=== PATIENT | male | born 1970 | race Caucasian/White ===

== ENCOUNTER → 2019-05-11 | Outpatient (CLI) | payer BC, OTHER ==
[~2019-05-11] MED LIST: ALLO100T PO; ATEN50TA2 PO; LISI-542 PO; SIMV40TA2 PO
--- NOTE | 2019-05-17 10:00 | SLEEPCENT ---
DATE OF STUDY: 05/11/2019 ORDERED BY: Aiyana Finley NP Nocturnal polysomnography was performed for evaluation of sleep physiology in this patient with a history of snoring. 8 hours and 19 minutes of data were reviewed. There were 439 minutes of sleep identified. Sleep latency was prolonged 41 minutes. Rapid eye movement (REM) latency was prolonged at 109 minutes. Sleep architecture was good with 5 REM cycles. Overall sleep efficiency 89.4%. The electrocardiogram shows a sinus rhythm with an average heart rate of 75 beats per minute. Electroencephalogram (EEG) showed normal waveforms for awake and sleep. There were 364 respiratory events identified of 10 seconds in duration or greater for an apnea-hypopnea index of 49.7. The events were generally obstructive, however, 40 central and mixed apneas were seen. Arousals from respiratory events occurred 4.4 times per hour and oxygen desaturations were seen into the 80s. Remaining measures of sleep physiology were normal. IMPRESSION: Obstructive sleep apnea syndrome (G47.33). Apnea-hypopnea index 49.7. RECOMMENDATIONS: The patient should be encouraged to return to the sleep disorder center for pressure therapy. In the interim, alcohol and sedative avoidance should be practiced and caution exercised during the operation of motor vehicles.
== END ==
LOC: M SLEEP 19:34
PROVIDERS: ATTEND Nurse Practitioner Adult Health
DX: G47.33 Obstructive sleep apnea (adult) (pediatric) (principal)

== ENCOUNTER → 2019-06-16 | Outpatient (CLI) | payer BC, OTHER ==
--- NOTE | 2019-06-20 14:11 | SLEEPCENT ---
DATE OF STUDY: 06/16/2019 ORDERED BY: Aiyana Finley NP Nocturnal polysomnography was performed for the titration of pressure therapy in this patient with obstructive sleep apnea syndrome, apnea-hypopnea index 49.7. For testing, a ResMed AirFit F20 full face mask of large size was used, 4 cm of water pressure were applied to the circuit and the lights were extinguished. 7 hours and 36 minutes of data were reviewed. There were 420.5 minutes of sleep identified. Sleep latency was normal at 13.5 minutes. REM latency was normal at 85.5 minutes. Sleep architecture was good with four REM cycles. Overall sleep efficiency 94.3%. The patient's electrocardiogram showed a sinus rhythm with an average heart rate of 64 beats per minute. EEG showed normal waveforms for awake and sleep. Respiratory events were best palliated with CPAP at a pressure of +6 and remaining measures of sleep physiology were normal. IMPRESSION: Obstructive sleep apnea syndrome (G47.33). RECOMMENDATION: Nightly use of pressure therapy, 6 cm of water. cc: Yumiko Alford, ANP
== END ==
LOC: M SLEEP 20:00
PROVIDERS: ATTEND Nurse Practitioner Adult Health
DX: G47.33 Obstructive sleep apnea (adult) (pediatric) (principal)

== ENCOUNTER 2021-05-01 09:12 | Inpatient (IN) | payer BC, OTHER ==
[~2021-05-01] VITALS: Ht 182.9 cm; Wt 109.5 kg
[~2021-05-01 09:12] MED LIST changes: -LISI-542 PO; +LISI-898 PO; -SIMV40TA2 PO; +SIMV40TA20 PO
[2021-05-01] MEDS ORDERED: SIMV20TA22 PO (10:56)
[2021-05-01] MEDS ORDERED: LISI40TA4 PO (10:56)
[2021-05-01] MEDS ORDERED: CEFA500C2 PO (10:56)
[2021-05-01] MEDS ORDERED: HYDR-3490 PO (10:56)
[2021-05-01] MEDS ORDERED: ALLO300T2 PO (10:56)
[2021-05-01] MEDS ORDERED: METO1TAB7 PO (10:56)
[2021-05-01] MEDS ORDERED: NS 1,000 ML IV ONE ×2 (11:55→13:05)
[2021-05-01] MEDS ORDERED: PIPERACILLIN/TAZOBACTAM SOD 3.375 GM in D5W MINI-BAG PLUS 50 ML IV ONE (11:55)
[2021-05-01] MEDS ORDERED: VANCOMYCIN HCL 2,000 MG in D5W 500 ML IV ONE (11:55)
[2021-05-01] MEDS ORDERED: FISH1000 PO (12:19)
[2021-05-01] MEDS ORDERED: EQL50TAB2 PO (12:19)
[2021-05-01] MEDS ORDERED: HOME MED LIST COMPLETE! XX SCH (12:20)
[2021-05-01 12:32] LABS: BASO % 0.3 % (0.0-1.0); EOS % 0.2 % (0.0-3.0); HEMATOCRIT 43.4 % (42.0-52.0); HEMOGLOBIN 14.7 g/dl (13.5-17.5); LYMPH # 1.8 10^3/uL (1.5-5.0); LYMPH % 11.9 % (24.0-44.0); MEAN CORPUSCULAR HGB CONC 33.9 g/dl (32.0-36.5); MEAN CORPUSCULAR VOLUME 88.6 fl (80.0-96.0); MONO # 1.1 10^3/uL (0.0-0.8); MONO % 7.1 % (2.0-8.0); NEUTROPHILS # 12.1 10^3/uL (1.5-8.5); NEUTROPHILS % 79.5 % (36.0-66.0); PLATELET COUNT, AUTOMATED 178 10^3/uL (150-450); WHITE BLOOD COUNT 15.3 10^3/uL (4.0-10.0)
[2021-05-01] MEDS ORDERED: VANCOMYCIN HCL 1,000 MG, VIAL MATE ADAPTER 1 EACH in NS 250 ML IV ONE (13:00)
--- NOTE | 2021-05-01 13:03 | REP ---
INDICATION: infected dm foot r/o osteo COMPARISON: None. TECHNIQUE: Four views left foot. FINDINGS: There is no evidence of acute fracture, dislocation, or intrinsic bone disease.A large spur is noted of the inferior calcaneus, having a length of approximately 14 mm. A soft tissue ulcer is suspected adjacent to the 1st metatarsophalangeal joint, with associated soft tissue swelling. There is no compelling radiographic evidence of osteomyelitis. IMPRESSION: No compelling radiographic evidence of osteomyelitis. <Electronically signed by Kodak Dinh > 05/01/21 1300
[2021-05-01 13:16] LABS: ERYTHROCYTE SEDIMENTATION RATE 56 mm/hr (0-20)
[2021-05-01] MEDS: VANCOMYCIN HCL 1,000 MG, VIAL MATE ADAPTER 1 EACH in NS 250 ML IV ONE ×2 (13:35→14:46)
[2021-05-01 14:23] LABS: HEMOGLOBIN A1c 11.3 %
[2021-05-01] MEDS ORDERED: LEVEMIR (INSULIN DETEMIR) 1 UNITS/0.01ML SC ONE (14:40)
[2021-05-01] MEDS ORDERED: DEXTROSE 50% 50 ML SYRINGE IV PRN (14:45)
[2021-05-01] MEDS ORDERED: GLUCAGON INJ 1MG VIAL SC PRN (14:45)
[2021-05-01] MEDS ORDERED: ACETAMINOPHEN TAB 650MG DOSE (2X325MG) PO PRN (14:45)
[2021-05-01] MEDS ORDERED: PERCOCET 5MG/325MG TAB PO PRN (14:45)
[2021-05-01] MEDS ORDERED: GLUCOSE 4GM CHEW TABLET PO PRN (14:45)
[2021-05-01] MEDS ORDERED: ENOXAPARIN 40MG/0.4ML SYRINGE (J1650 PER 10MG) SC ONE (14:45)
[2021-05-01] MEDS ORDERED: CEFTAROLINE FOSAMIL 600 MG in D5W MINI-BAG PLUS 50 ML IV SCH (14:45)
[2021-05-01] MEDS ORDERED: ISOVUE-370 76% 100ML VIAL As Ordered ONE (15:00)
[2021-05-01] MEDS ORDERED: NS 1,000 ML IV SCH (15:00)
--- NOTE | 2021-05-01 15:57 | HPEPDOC ---
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 Bacon, noted a small red dot on the dorsal aspect of foot w bullae, worsening erythema, tenderness, and pain with fever 101-102 at home w serosanguineous drainage. Pt went to Urgent Care and was given cefadroxil 500 mg tid without improvement. In the ER, pt was found to be septic with wbc 15, 100.9 temp, lactic acidosis 2.8, and tachycardia hr 109bpm. Xray left foot: no osteomyelitis. crp 14. Hospitalist was asked to admit the patient for left foot diabetic foot infection w chronic plantar ulcer. sepsis left dorsal foot cellulitis with a soft tissue diabetic ulcer chronic 1st MTP plantar ulcer DM2, uncontrolled HTN, uncontrolled ANCA on cpap Dyslipidemia Obesity bmi 32.7 Fatty liver h/o GI bleed/perianal fistula s/p repair Plan: admit to medsurg as inpt for two midnights. cover for gram positive, gram neg and anaerobic bacteria. de-escalate abx once wound cxs are finalized. blood cx x 2sets. tight glycemic control. a1c 11.3. start levemir 10units sq bid. pain control bacid bowel regiment dvt prophylaxis. resume home cpap and bp meds. check lipid panel in am. check arterial dopplers to rule out peripheral vascular disease and need for revascularization. check ct left foot to rule out abscess. xr: no osteomyelitis. expected hospital stay 3-4 days pending clinical improvement. Vital Signs Vital Signs Date Time Temp Pulse Resp B/P (MAP) Pulse Ox O2 Delivery O2 Flow Rate FiO2 05/01/21 12:59 100.9 100 18 134/81 (98) 98 Room Air Laboratory Data Labs 24H Laboratory Tests 2 05/01/21 12:05: Immature Granulocyte % (Auto) 1.0, Neutrophils (%) (Auto) 79.5H, Lymphocytes (%) (Auto) 11.9L, Monocytes (%) (Auto) 7.1, Eosinophils (%) (Auto) 0.2, Basophils (%) (Auto) 0.3, Neutrophils # (Auto) 12.1H, Lymphocytes # (Auto) 1.8, Monocytes # (Auto) 1.1H, Eosinophils # (Auto) 0.0, Basophils # (Auto) 0.0, Nucleated Red Blood Cells % (auto) 0.0, Erythrocyte Sedimentation Rate 56H, Estimated Mean Plasma Glucose 278H, Hemoglobin A1c 11.3, Lactic Acid Level 2.8*H, C-Reactive Protein, Quantitative 14.80H, Coronavirus (COVID-19)(PCR) NEGATIVE 05/01/21 12:07: POC Glucose (Misc Panel) 360H, POC Sodium (Misc Panel) 137, POC Potassium (Misc Panel) 4.3, POC Chloride (Misc Panel) 96L, POC Total CO2 (Misc Panel) 27.0, POC Blood Urea Nitrogen (Misc Panel 14, POC Ionized Calcium (Misc Panel) 4.9, POC Creatinine (Misc Panel) 1.0, POC Hematocrit (Misc Panel) 44.0 CBC/BMP Laboratory Tests 05/01/21 12:05 Microbiology Microbiology 05/01/21 Blood Culture, Received Pending 05/01/21 Gram Stain - Final, Resulted 05/01/21 Wound Culture, Resulted Pending 05/01/21 Blood Culture, Received Pending Home Medications Scheduled Cefadroxil Monohydrate (Cefadroxil) 500 Mg Capsule, 500 MG PO TID STARTED 04/29/21 FOR 7 DAYS Hydrochlorothiazide (Hydrochlorothiazide) 25 Mg Tablet, 25 MG PO DAILY Lisinopril (Lisinopril) 40 Mg Tablet, 40 MG PO DAILY Metoprolol Succinate (Metoprolol Succinate) 50 Mg Tab.er.24h, 75 MG PO DAILY Whiteface-3 Fatty Acids/Fish Oil (Fish Oil 1,000 mg Capsule) 1 Each Capsule, 1,000 MG PO DAILY Simvastatin (Simvastatin) 20 Mg Tablet, 20 MG PO DAILY Vitamin B Complex (Vitamin B Complex) 1 Each Tablet, 1 TAB PO DAILY allopurinoL (allopurinoL) 300 Mg Tablet, 300 MG PO DAILY Allergies Coded Allergies: No Known Allergies (Verified , 8/15/07) A-FIB/CHADSVASC A-FIB History Current/History of A-Fib/PAF?: No Current PO Anticoag Therapy: No Age/Risk Factor Scoring CHADSVASC: CHADSVASC Response (Comments) Value Age Risk Factor Age < 65 years old 0 Gender Risk Factor Male 0 Hx of CHF No 0 Hx of HTN Yes 1 Hx of Stroke/TIA/or VTE No 0 Hx of Diabetes Yes 1 Hx of Vascular Disease No 0 Total 2 Treatment Treatment ordered: NONE VICKY IRENE MD May 01, 2021 15:57
[2021-05-01 17:12] VITALS: BP 155/95
--- NOTE | 2021-05-01 17:17 | REP ---
INDICATION: LEFT FOOT INFECTION R/O ABSCESS. COMPARISON: Plain film study performed earlier today. TECHNIQUE: CT of the left foot without IV contrast. FINDINGS: There is skin thickening medially adjacent to the great toe MTP articulation with edema in the underlying soft tissues. There is no focal fluid collection to suggest abscess. There are no lytic, blastic or destructive skeletal changes to suggest osteomyelitis in the great toe or elsewhere in the foot. There is a calcaneal plantar spur. Mineralization and joint spaces are otherwise unremarkable. IMPRESSION: No CT evidence of osteomyelitis, particularly at the base of the great toe. There is skin thickening medially adjacent to the great toe MTP P articulation with edema in the underlying soft tissue continue compatible with trauma, inflammation or infection in the soft tissues. <Electronically signed by Kodak Mari > 05/01/21 [id number]
[2021-05-01] MEDS: NS 1,000 ML IV SCH (17:20)
--- NOTE | 2021-05-01 17:20 | HPE ---
HISTORY AND PHYSICAL DATE OF ADMISSION: 05/01/2021 CHIEF COMPLAINT: Left foot redness, pain, and tenderness. HISTORY OF PRESENT ILLNESS: A 51-year-old male with a history of diabetes, obstructive sleep apnea, hypertension, gastrointestinal (GI) bleed, perianal fistula with repair, adenomatous rectosigmoid polyps, grade 3, hemorrhoids, cholecystectomy with chronic left plantar foot ulcer, managed by Dr. Bacon with every 2-week debridements, presents to the emergency room after failing outpatient treatment with cefadroxil for a left foot cellulitis. Patient said that last Tuesday he noted a small red dot on top of the left foot below the big toe, which then blistered and opened up on Tuesday. At that time, it was pea-sized, about 1 cm big, which increased to 2.5 cm and became bullous and opened with clear fluid. He was seen at the urgent care on Tuesday and had bene given cefadroxil. He had taken four pills of this for the past 2 days, and he has noted fever of 101 and 102 at home yesterday and the day before without improvement with antibiotics and taking Advil for pain. Patient is seen in the minor treatment in the emergency room and was found to have a 13 x 16 cm erythematous area with a 2.5 open blister on the bottom of the 1st big toe on the dorsal aspect without any crepitus or induration. The 1.5 cm 1st metatarsophalangeal (MTP) plantar ulcer had no drainage. Appeared clean without erythema. Workup included a complete blood count (CBC), which showed a white count of 15,000, lactic acid of 2.8, C-reactive protein of 14. Patient had a temperature of 100.9, pulse of 107-109. Hospitalist was called to admit the patient for left foot diabetic infection secondary to an open blister. Patient denies any trauma to this area, and he denies any manipulation of this area. He was given intravenous vancomycin and intravenous Zosyn. He otherwise denies any chills, any purulence. No other complaints. MEDICAL HISTORY: 1. Obstructive sleep apnea . 2. Obesity. 3. Hypertension. 4. GI bleed. 5. Perianal fistula with repair. 6. Type 2 diabetes. 7. Adenomatous rectosigmoid polyps. 8. Grade 3 hemorrhoids. 9. Fatty liver. 10. Obesity. 11. Hypercholesterolemia. PAST SURGICAL HISTORY: 1. Cholecystectomy in 2006. 2. Colonoscopy in 2016. 3. Rectofistula repair. 4. Debridement of the left foot by Dr. Bacon for a diabetic foot ulcer every 2 weeks. ALLERGIES: No known drug allergies. HOME MEDICATIONS: - cefadroxil 500 mg three times a day - hydrochlorothiazide 25 daily - lisinopril 40 mg daily - omega-3 fish oil 1 gram daily - vitamin B one tablet daily - allopurinol 300 daily - metoprolol 75 mg daily - simvastatin 20 mg daily SOCIAL HISTORY: Occasional wine during and . 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 Full code. Patient's is the healthcare proxy. Her name is Farhana Joyner, phone number . Denies recreational drug use. Nonsmoker. FAMILY HISTORY: Mother and father alive. Father with hypertension, age 76. Mother alive, age 73. Unknown medical problems. REVIEW OF SYSTEMS: Per history of present illness (HPI). A 12-point system otherwise negative. PHYSICAL EXAMINATION: VITAL SIGNS: Temperature 100.9, pulse 109, respiratory rate 18-19, blood pressure 170/90 to 134/81, 98%-95% on room air. GENERAL: Patient is awake, alert, oriented to person, place, and time, answering questions appropriately. No cyanosis, pallor, respiratory distress, or use of accessory muscles. Anicteric sclerae. HEENT: Pupils equally round and reactive to light and accommodation. Extraocular muscles are intact. Normocephalic, atraumatic. Dry mucous membranes. No cervical lymphadenopathy, thyromegaly, jugular venous distention, stridor, or carotid bruits. LUNGS: Clear to auscultation. Air entry is equal. Inspiratory/expiratory ratio of 1:2. No adventitious breath sounds. HEART: S1, S2, sinus tachycardia. No murmurs, rubs, or gallops. Nondisplaced point of maximal impulse. ABDOMEN: Obese, soft, nontender, nondistended. Positive bowel sounds times four quadrants. No rebound or guarding. Prior cholecystectomy scar is noted. EXTREMITIES: Patient has no cyanosis or clubbing. Trace edema bilaterally. On the plantar aspect of the left foot around the MTP joint, he has a 1.5 cm clean ulcer without erythema, induration, or discharge. On the dorsal aspect of the foot right below the 1st big toe he has an open blister, measuring 2.5 cm with significant serosanguineous drainage. Erythema is noted along the dorsal aspect of the foot, measuring 13 cm in length and 15 cm wide that is well demarcated. There is no crepitus. There is no induration. Slightly tender with some swelling. LABORATORY DATA: White count 15.3, hemoglobin 14, hematocrit 43.4, platelet count 178, 79% neutrophil shift. No bandemia. Sedimentation rate of 56. Metabolic panel: Sodium 137, potassium 4.3, chloride 96, bicarbonate 27, BUN 14, creatinine 1, ionized calcium 4.9, glucose 360. Lactic acid 2.8. Hemoglobin A1c of 11.3. C-reactive protein 14.8. Negative coronavirus. Two sets of blood cultures have been sent. Left foot wound cultures: No cells. No organisms seen. IMAGING STUDY: X-ray of the left foot: No osteomyelitis. There is no fracture, dislocation, or intrinsic bone disease. A large spur is noted on the inferior calcaneus with a length of 14 mm. Soft tissue ulcer adjacent to the first metatarsophalangeal joint with adjacent soft tissue swelling. No compelling evidence of osteomyelitis. ASSESSMENT AND PLAN: This is a 51-year-old male with diabetes, hypertension, obstructive sleep apnea, and obesity, metabolic syndrome, adenomatous rectosigmoid polyps with perianal fistula, which was repaired, presents with cellulitis of the left foot with a chronic venous plantar ulcer and a new open ruptured blister along the 1st metatarsophalangeal (MTP) joint on the left foot. Patient will be admitted as an inpatient for 2 midnights. 1. Left foot cellulitis left diabetic foot infection with an open blister in the setting of chronic plantar ulcer. Patient will be given gram-positive as well as gram-negative and anaerobic coverage due to history of type 2 diabetes. He has been given vancomycin and intravenous Zosyn. Wound cultures have been sent and will await and de-escalate antibiotics accordingly. Patient will be continued on ceftaroline and Flagyl for now. If no significant improvement, we can continue with vancomycin and Zosyn if needed. Pain control with Tylenol or Percocet every 4 hours as needed. Elevate the left lower extremity above three pillow at all times. Activity as tolerated. Patient will be evaluated for peripheral vascular disease with arterial Doppler. For better definition of the patient's soft tissue ulcer, a CT of the left foot with contrast will be obtained. If needed will consult vascular surgery for revascularization of significant peripheral vascular disease as noted. 2. Uncontrolled type 2 diabetes with no signs of acidosis. Patient will be started on Levemir insulin 10 units subcutaneous twice a day for better glycemic control. He will be placed on consistent-carbohydrate diet with fingersticks before every meal, at bedtime, and [facility]) protocol insulin coverage with Lispro insulin. A1c is 11.3. 3. Obesity. Check lipid panel. Control patient's type 2 diabetes with tighter glycemic control using Levemir insulin and sliding scale for now and adjust over the next 2-3 days. 4. Hypertension, uncontrolled, most likely secondary to pain and discomfort. Patient's metoprolol and lisinopril will be continued. Due to recent contrast study with a CT of the foot, patient will be given intravenous (IV) fluids, and we may need to hold the patient's lisinopril for 1 day to make sure he does not develop contrast nephropathy. 5. Obstructive sleep apnea. He may be resumed on his home CPAP settings. His can bring in his CPAP machine, or he can be placed on supplemental oxygen at nighttime. 6. History of a gastrointestinal (GI) bleed due to rectal fistula. Patient is currently stable with no new complaints. 7. History of grade 3 hemorrhoids. If needed, patient can be given a bowel regimen. 8. Deep venous thrombosis (DVT) prophylaxis with Lovenox subcutaneous. 9. Code status: Full code. 10. Diet will be consistent-carbohydrate diet. DISPOSITION: Patient will need at least 3 days of intravenous antibiotics and pending clinical improvement may need additional days or debridement. MTDD
[2021-05-01] MEDS: LACTOBACILLUS ACIDOPHILUS CAP (BACID) PO SCH (17:21)
--- NOTE | 2021-05-01 18:13 | REP ---
INDICATION: NONHEALING DIABETIC FOOT INFECTION R/O PAD. COMPARISON: None. TECHNIQUE: Doppler duplex ultrasound of the lower extremity arteries bilaterally. FINDINGS: Right lower extremity: Brachial peak systole: 140 mmHg Dorsalis pedis peak systole: 120 mmHg REPORT CHECKER peak systole: 120 mmHg MAIDA: 0.9 STILL PHOTOGRAPHER: 160 velocity, triphasic phasicity Profunda: Thick 95 velocity, triphasic phasicity SFA prox: 102 velocity, 2 triphasic phasicity SFA mid: 96 velocity, triphasic phasicity SFA dist: 79 velocity, triphasic phasicity Pop: 58 velocity, triphasic phasicity KHANG prox: 73 velocity, triphasic phasicity Tib/P tr: 41 velocity, triphasic phasicity REPORT CHECKER pr: 44 velocity, biphasic phasicity REPORT CHECKER dst: 67 velocity, biphasic phasicity KHANG dst: 29 velocity, biphasic phasicity Left lower extremity: Brachial peak systole: Non obtainable, IV site mmHg Dorsalis pedis peak systole: 120 mmHg REPORT CHECKER peak systole: 120 mmHg MAIDA: 0.9 STILL PHOTOGRAPHER: 127 velocity, triphasic phasicity Profunda: 118 velocity, monophasic phasicity SFA prox: 117 velocity, triphasic phasicity SFA mid: 121 velocity, triphasic phasicity SFA dist: 116 velocity, triphasic phasicity Pop: 130 velocity, triphasic phasicity KHANG prox: 133 velocity, monophasic phasicity Tib/P tr: 106 velocity, monophasic phasicity REPORT CHECKER pr: 111 velocity, monophasic phasicity REPORT CHECKER dst: 87 velocity, in monophasic phasicity KHANG dst: 128 velocity, monophasic phasicity IMPRESSION: Right lower extremity: There is mild atheromatous plaque. There is triphasic-biphasic phasicity throughout. No significant stenosis is identified. Left lower extremity: There is mild atheromatous plaque throughout. Slightly increased flow velocity is noted at the KHANG and there is increased end-diastolic flow at the ankle vessels. This is likely secondary to the left foot wounds. No stenosis is identified by ultrasound. <Electronically signed by Kodak Mari > 05/01/21 [id number]
[2021-05-01] MEDS: CEFTAROLINE FOSAMIL 600 MG in D5W MINI-BAG PLUS 50 ML IV SCH (18:20)
[2021-05-01] MEDS: HumaLOG INSULIN (NovoLOG) PER UNIT SC SCH ×2 (18:22→20:40)
[2021-05-01] MEDS: metroNIDAZOLE 500 MG in IV 1 EA IV SCH (20:39)
[2021-05-01] MEDS: SIMVASTATIN 20 MG TAB PO SCH (20:40)
[2021-05-01] MEDS ORDERED: LEVEMIR (INSULIN DETEMIR) 1 UNITS/0.01ML SC SCH (21:00)
[2021-05-01 22:00] VITALS: BP 123/90
[2021-05-02] MEDS: metroNIDAZOLE 500 MG in IV 1 EA IV SCH ×3 (03:17→20:26)
[2021-05-02] MEDS: NS 1,000 ML IV SCH (03:17)
[2021-05-02] MEDS: CEFTAROLINE FOSAMIL 600 MG in D5W MINI-BAG PLUS 50 ML IV SCH ×2 (05:18→18:02)
[2021-05-02 06:00] VITALS: BP 120/76
[2021-05-02 06:24] LABS: BASO % 0.4 % (0.0-1.0); EOS # 0.3 10^3/uL (0.0-0.5); EOS % 3.2 % (0.0-3.0); HEMATOCRIT 38.4 % (42.0-52.0); LYMPH # 1.6 10^3/uL (1.5-5.0); LYMPH % 20.7 % (24.0-44.0); MEAN CORPUSCULAR HEMOGLOBIN 29.9 pg (27.0-33.0); MEAN CORPUSCULAR HGB CONC 32.8 g/dl (32.0-36.5); MONO # 0.7 10^3/uL (0.0-0.8); MONO % 9.1 % (2.0-8.0); NEUTROPHILS # 5.2 10^3/uL (1.5-8.5); NEUTROPHILS % 66.1 % (36.0-66.0); PLATELET COUNT, AUTOMATED 140 10^3/uL (150-450); RED BLOOD COUNT 4.22 10^6/uL (4.30-6.10); WHITE BLOOD COUNT 7.8 10^3/uL (4.0-10.0)
[2021-05-02 06:26] LABS: HEMOGLOBIN 12.6 g/dl (13.5-17.5)
[2021-05-02 06:52] LABS: BLOOD UREA NITROGEN 12 MG/DL (7-18); CARBON DIOXIDE LEVEL 27 MEQ/L (21-32); CHLORIDE LEVEL 106 MEQ/L (98-107); CHOLESTEROL LEVEL 135 MG/DL (<200); CREATININE FOR GFR 0.93 MG/DL (0.70-1.30); GLOMERULAR FILTRATION RATE > 60.0 (>56); GLUCOSE, FASTING 268 MG/DL (70-100); HDL CHOLESTEROL 25 MG/DL (>40); LDL CHOLESTEROL 73 MG/DL (<100); NON-HDL-C 110 MG/DL; POTASSIUM SERUM 3.8 MEQ/L (3.5-5.1); SODIUM LEVEL 138 MEQ/L (136-145); TRIGLYCERIDES LEVEL 186 MG/DL (<150)
[2021-05-02 06:59] LABS: ERYTHROCYTE SEDIMENTATION RATE 63 mm/hr (0-20)
[2021-05-02] MEDS: allopurinoL 300 MG TAB PO SCH (08:47)
[2021-05-02] MEDS: HumaLOG INSULIN (NovoLOG) PER UNIT SC SCH ×4 (08:47→20:53)
[2021-05-02] MEDS: LACTOBACILLUS ACIDOPHILUS CAP (BACID) PO SCH ×3 (08:47→18:02)
[2021-05-02] MEDS: LEVEMIR (INSULIN DETEMIR) 1 UNITS/0.01ML SC SCH ×2 (08:47→20:26)
[2021-05-02] MEDS: METOPROLOL SUCC *XL* 25MG TAB (TopROL *XL*) PO SCH (08:51)
[2021-05-02] MEDS: ENOXAPARIN 40MG/0.4ML SYRINGE (J1650 PER 10MG) SC SCH (08:52)
--- NOTE | 2021-05-02 11:20 | IPNPDOC ---
Date Seen The patient was seen on 05/02/21. Progress Note SUBJECTIVE: He denies any pain of the foot. Afebrile since midnight. No chills Complains of discomfort when he ambulates and moves her foot With pain rising to 5-8 out of 10 on a pain scale OBJECTIVE: PHYSICAL EXAM: VITALS: See below GENERAL: Sitting at 35 degrees in bed in no distress patient is awake, alert, oriented to person, place, and time, answering questions appropriately. No cyanosis, pallor, respiratory distress, or use of accessory muscles. Anicteric sclerae. HEENT: No stridor. Pupils equally round and reactive to light and accommodation. Extraocular muscles are intact. Normocephalic, atraumatic. Moist mucous membranes. No cervical lymphadenopathy, thyromegaly, jugular venous distention, stridor, or carotid bruits. LUNGS: No kyphosis. No scoliosis. Clear to auscultation. Air entry is equal. Inspiratory/expiratory ratio of 1:2. No adventitious breath sounds. HEART: S1, S2, sinus. Regular rate rhythm. No murmurs, rubs, or gallops. Nondisplaced point of maximal impulse. No carotid bruits. No pitting edema. ABDOMEN: Obese, soft, nontender, nondistended. Positive bowel sounds times four quadrants. No rebound or guarding. No hepatosplenomegaly noted. EXTREMITIES: 1.5 cm clean Plantar ulcer without erythema, induration, or discharge At the base of the left first metatarsal joint.. Left foot below the 1st big toe an open blister, measuring 2.5 cm with serous drainage, decreased erythema is noted along the dorsum of the foot without induration or crepitus. LABORATORY DATA: See below IMAGING STUDY: X-ray of the left foot: No osteomyelitis. There is no fracture, dislocation, or intrinsic bone disease. A large spur is noted on the inferior calcaneus with a length of 14 mm. Soft tissue ulcer adjacent to the first metatarsophalangeal joint with adjacent soft tissue swelling. No compelling evidence of osteomyelitis. ASSESSMENT AND PLAN: This is a 51-year-old male with diabetes, hypertension, obstructive sleep apnea, and obesity, metabolic syndrome, adenomatous rectosigmoid polyps with perianal fistula, which was repaired, presents with cellulitis of the left foot with a chronic venous plantar ulcer and a new open ruptured blister along the 1st metatarsophalangeal (MTP) joint on the left foot. Patient will be admitted as an inpatient for 2 midnights. Left foot cellulitis left diabetic foot infection with an open blister and chronic plantar ulcer. -Status post Vanco Zosyn given in the ER -Day #2 of ceftaroline and Flagyl -As needed pain medications -Elevate on 3 pillows while supine -Activity as tolerated -Status post IV fluids -No significant stenosis on arterial Dopplers of bilateral lower extremities -CT left foot shows no abscess Uncontrolled type 2 diabetes -A1c of 11.3 -On Levemir insulin 11 units subcu every 12hrs -On consistent carbohydrate diet fingersticks QA [facility] insulin sliding scale coverage -Not started on Metformin due to recent contrast study of the foot yesterday with increased risk of nephrotoxicity if concurrently given Obesity. -Complicating care Hypertension, improved -Resumed home meds Obstructive sleep apnea. - home CPAP settings. History of a gastrointestinal (GI) bleed due to rectal fistula. History of grade 3 hemorrhoids Deep venous thrombosis (DVT) prophylaxis with Lovenox subcutaneous. Code status: Full code. Diet consistent-carbohydrate diet. Disposition 2-3 more days of IV antibiotics possible discharge on Tuesday depending on whether patient requires surgical debridement VS, I&O, 24H, Andrez Vital Signs/I&O Vital Signs Date Time Temp Pulse Resp B/P (MAP) Pulse Ox O2 Delivery O2 Flow Rate FiO2 05/02/21 08:51 82 121/78 05/02/21 06:00 97.9 19 97 Room Air I&O- Last 24 Hours up to 6 AM 05/02/21 06:00 Intake Total 3160 ml Output Total 0 ml Balance 3160 ml Laboratory Data 24H LABS Laboratory Tests 2 05/01/21 12:05: Immature Granulocyte % (Auto) 1.0, Neutrophils (%) (Auto) 79.5H, Lymphocytes (%) (Auto) 11.9L, Monocytes (%) (Auto) 7.1, Eosinophils (%) (Auto) 0.2, Basophils (%) (Auto) 0.3, Neutrophils # (Auto) 12.1H, Lymphocytes # (Auto) 1.8, Monocytes # (Auto) 1.1H, Eosinophils # (Auto) 0.0, Basophils # (Auto) 0.0, Nucleated Red Blood Cells % (auto) 0.0, Erythrocyte Sedimentation Rate 56H, Estimated Mean Plasma Glucose 278H, Hemoglobin A1c 11.3, Lactic Acid Level 2.8*H, C-Reactive Pr otein, Quantitative 14.80H, Coronavirus (COVID-19)(PCR) NEGATIVE 05/01/21 12:07: POC Glucose (Misc Panel) 360H, POC Sodium (Misc Panel) 137, POC Potassium (Misc Panel) 4.3, POC Chloride (Misc Panel) 96L, POC Total CO2 (Misc Panel) 27.0, POC Blood Urea Nitrogen (Misc Panel 14, POC Ionized Calcium (Misc Panel) 4.9, POC Creatinine (Misc Panel) 1.0, POC Hematocrit (Misc Panel) 44.0 05/01/21 16:42: Lactic Acid Followup at 4 Hours 1.5 05/01/21 17:01: Bedside Glucose (Misc Panel) 237H 05/01/21 20:33: Bedside Glucose (Misc Panel) 297H 05/02/21 05:25: Methicillin-Resist S.aureus DNA PCR NOT DETECTED 05/02/21 05:44: Immature Granulocyte % (Auto) 0.5, Neutrophils (%) (Auto) 66.1H, Lymphocytes (%) (Auto) 20.7L, Monocytes (%) (Auto) 9.1H, Eosinophils (%) (Auto) 3.2H, Basophils (%) (Auto) 0.4, Neutrophils # (Auto) 5.2, Lymphocytes # (Auto) 1.6, Monocytes # (Auto) 0.7, Eosinophils # (Auto) 0.3, Basophils # (Auto) 0.0, Nucleated Red Blood Cells % (auto) 0.0, Erythrocyte Sedimentation Rate 63H, Anion Gap 5L, Glomerular Filtration Rate > 60.0, Calcium Level 8.0L, C-Reactive Protein, Qu antitative 11.50H, Triglycerides Level 186H, Total Cholesterol 135, LDL Cholesterol 73, Non-HDL Cholesterol (LDL + VLDL) 110, Total HDL Cholesterol 25L, Cholesterol/HDL Ratio 5.400H, Thyroid Stimulating Hormone (TSH) 1.080 CBC/BMP Laboratory Tests 05/01/21 12:05 05/02/21 05:44 Microbiology Microbiology 05/01/21 Blood Culture, Received Pending 05/01/21 Gram Stain - Final, Resulted 05/01/21 Wound Culture, Resulted Pending 05/01/21 Blood Culture, Received Pending VICKY IRENE MD May 02, 2021 11:14
[2021-05-02 14:00] VITALS: BP 135/79
[2021-05-02] MEDS: SIMVASTATIN 20 MG TAB PO SCH (20:26)
[2021-05-02 22:00] VITALS: BP 124/74
[2021-05-03] MEDS: metroNIDAZOLE 500 MG in IV 1 EA IV SCH ×3 (03:56→20:19)
[2021-05-03] MEDS: CEFTAROLINE FOSAMIL 600 MG in D5W MINI-BAG PLUS 50 ML IV SCH ×2 (05:26→17:36)
[2021-05-03 06:00] VITALS: BP 141/79
[2021-05-03 06:16] LABS: BASO # 0.1 10^3/uL (0.0-0.2); BASO % 0.8 % (0.0-1.0); EOS # 0.3 10^3/uL (0.0-0.5); EOS % 4.5 % (0.0-3.0); HEMATOCRIT 37.7 % (42.0-52.0); HEMOGLOBIN 12.4 g/dl (13.5-17.5); LYMPH # 1.6 10^3/uL (1.5-5.0); LYMPH % 24.5 % (24.0-44.0); MEAN CORPUSCULAR HGB CONC 32.9 g/dl (32.0-36.5); MEAN CORPUSCULAR VOLUME 91.1 fl (80.0-96.0); MONO # 0.6 10^3/uL (0.0-0.8); MONO % 9.2 % (2.0-8.0); NEUTROPHILS # 3.9 10^3/uL (1.5-8.5); NEUTROPHILS % 60.2 % (36.0-66.0); PLATELET COUNT, AUTOMATED 156 10^3/uL (150-450); RED BLOOD COUNT 4.14 10^6/uL (4.30-6.10); WHITE BLOOD COUNT 6.4 10^3/uL (4.0-10.0)
[2021-05-03 06:28] LABS: BLOOD UREA NITROGEN 13 MG/DL (7-18); CALCIUM LEVEL 7.8 MG/DL (8.5-10.1); CARBON DIOXIDE LEVEL 27 MEQ/L (21-32); CHLORIDE LEVEL 112 MEQ/L (98-107); CREATININE FOR GFR 0.93 MG/DL (0.70-1.30); GLOMERULAR FILTRATION RATE > 60.0 (>56); GLUCOSE, FASTING 213 MG/DL (70-100); SODIUM LEVEL 143 MEQ/L (136-145)
[2021-05-03] MEDS: LEVEMIR (INSULIN DETEMIR) 1 UNITS/0.01ML SC SCH ×2 (08:11→20:20)
[2021-05-03] MEDS: HumaLOG INSULIN (NovoLOG) PER UNIT SC SCH ×4 (08:11→21:00)
[2021-05-03] MEDS: allopurinoL 300 MG TAB PO SCH (08:12)
[2021-05-03] MEDS: METOPROLOL SUCC *XL* 25MG TAB (TopROL *XL*) PO SCH (08:12)
[2021-05-03] MEDS: metFORMIN (GLUCOPHAGE) 1000 MG TABLET PO SCH ×2 (08:12→17:36)
[2021-05-03] MEDS: LACTOBACILLUS ACIDOPHILUS CAP (BACID) PO SCH ×3 (08:12→17:36)
[2021-05-03] MEDS: ENOXAPARIN 40MG/0.4ML SYRINGE (J1650 PER 10MG) SC SCH (08:12)
--- NOTE | 2021-05-03 11:13 | IPNPDOC ---
Date Seen The patient was seen on 05/03/21. Progress Note SUBJECTIVE: Patient has no fever chills nausea vomiting abdominal pain diarrhea erythema and tenderness of the left foot are both improving on IV antibiotics Patient denies any worsening discharge from the dorsum of the left foot below the first MTP joint. He denies any throbbing pain this morning says that the discomfort is 1 out of 10 on a pain scale. Glucose levels are improved on Levemir insulin. OBJECTIVE: PHYSICAL EXAM: VITALS: See below GENERAL: Lying in bed asleep but easily arousable answers questions appropriately without respiratory distress HEENT: Moist mucous membranes no JVD or thyromegaly LUNGS: Air entry is equal clear to auscultation no adventitious breath sounds HEART: S1, S2, sinus. Regular rate rhythm. ABDOMEN: Obese, soft, nontender, nondistended. Positive bowel sounds times four quadrants. No rebound or guarding. EXTREMITIES: 1.5 cm clean Plantar ulcer without erythema, induration, or discharge At the base of the left first metatarsal joint.. Left foot below the 1st big toe an open blister, measuring 2.5 cm without purulent drainage decreasing erythema of the dorsum of the foot. LABORATORY DATA: See below IMAGING STUDY: X-ray of the left foot: No osteomyelitis. There is no fracture, dislocation, or intrinsic bone disease. A large spur is noted on the inferior calcaneus with a length of 14 mm. Soft tissue ulcer adjacent to the first metatarsophalangeal joint with adjacent soft tissue swelling. No compelling evidence of osteomyelitis. ASSESSMENT AND PLAN: This is a 51-year-old male with diabetes, hypertension, obstructive sleep apnea, and obesity, metabolic syndrome, adenomatous rectosigmoid polyps with perianal fistula, which was repaired, presents with cellulitis of the left foot with a chronic venous plantar ulcer and a new open ruptured blister along the 1st metatarsophalangeal (MTP) joint on the left foot. Patient will be admitted as an inpatient for 2 midnights. Left foot cellulitis left diabetic foot infection with an open blister and chronic plantar ulcer. Uncontrolled type 2 diabetes Obesity. Hypertension Obstructive sleep apnea. History of a gastrointestinal (GI) bleed due to rectal fistula. History of grade 3 hemorrhoids Deep venous thrombosis (DVT) prophylaxis with Lovenox subcutaneous. PLAN: Patient is clinically improving on IV antibiotics he did receive Vanco Zosyn from the emergency room He is currently on ceftaroline and Flagyl Patient failed on outpatient antibiotics Telemedicine with Dr. Bo for wound care Dr. Bacon director of research and development is on vacation this entire week and will not be availab le for debridement We will consult general surgery for debridement of the left foot Arterial Dopplers did not show any significant peripheral arterial disease CT of the foot did not show any abscess formation the requires emergency incision and drainage X-ray of the foot did not show any osteomyelitis Patient has been started on Levemir insulin and sliding scale which the patient does not want to keep as outpatient Will start on Metformin 1 g twice daily and titrate Levemir insulin down if glucose is better controlled. Code status: Full code. Diet consistent-carbohydrate diet. Disposition : Await wound care evaluation by Dr. Bo for dressing changes. General surgical consult for debridement of the left dorsal diabetic ulcer. 1- 2 more days of hospital stay . VS, I&O, 24H, Fishbone Vital Signs/I&O Vital Signs Date Time Temp Pulse Resp B/P (MAP) Pulse Ox O2 Delivery O2 Flow Rate FiO2 05/03/21 08:12 71 141/88 05/03/21 06:00 98.6 16 99 NIPPV (BIPAP/CPAP) I&O- Last 24 Hours up to 6 AM 05/03/21 06:00 Intake Total 1600 ml Output Total 0 ml Balance 1600 ml Laboratory Data 24H LABS Laboratory Tests 2 05/02/21 11:35: Bedside Glucose (Misc Panel) 264H 05/02/21 16:59: Bedside Glucose (Misc Panel) 239H 05/02/21 20:08: Bedside Glucose (Misc Panel) 250H 05/03/21 05:43: Immature Granulocyte % (Auto) 0.8, Neutrophils (%) (Auto) 60.2, Lymphocytes (%) (Auto) 24.5, Monocytes (%) (Auto) 9.2H, Eosinophils (%) (Auto) 4.5H, Basophils (%) (Auto) 0.8, Neutrophils # (Auto) 3.9, Lymphocytes # (Auto) 1.6, Monocytes # (Auto) 0.6, Eosinophils # (Auto) 0.3, Basophils # (Auto) 0.1, Nucleated Red Blood Cells % (auto) 0.0, Anion Gap 4L, Glomerular Filtration Rate > 60.0, Manuelito cium Level 7.8L CBC/BMP Laboratory Tests 05/03/21 05:43 Microbiology Microbiology 05/01/21 Blood Culture - Preliminary, Resulted No growth after 24 hours . All specim... 05/01/21 Gram Stain - Final, Complete 05/01/21 Wound Culture - Final, Complete 05/01/21 Blood Culture - Preliminary, Resulted No growth after 24 hours . All specim... VICKY IRENE MD May 03, 2021 11:13
[2021-05-03 14:00] VITALS: BP 132/82
[2021-05-03] MEDS: SIMVASTATIN 20 MG TAB PO SCH (20:19)
[2021-05-03 22:00] VITALS: BP 129/66
[2021-05-04] MEDS: metroNIDAZOLE 500 MG in IV 1 EA IV SCH ×3 (04:07→20:39)
[2021-05-04] MEDS: CEFTAROLINE FOSAMIL 600 MG in D5W MINI-BAG PLUS 50 ML IV SCH ×2 (05:10→17:10)
[2021-05-04 05:59] LABS: BASO % 0.7 % (0.0-1.0); EOS # 0.3 10^3/uL (0.0-0.5); EOS % 4.6 % (0.0-3.0); HEMATOCRIT 38.8 % (42.0-52.0); HEMOGLOBIN 12.8 g/dl (13.5-17.5); LYMPH # 1.7 10^3/uL (1.5-5.0); LYMPH % 28.5 % (24.0-44.0); MEAN CORPUSCULAR HEMOGLOBIN 29.8 pg (27.0-33.0); MEAN CORPUSCULAR VOLUME 90.2 fl (80.0-96.0); MONO # 0.5 10^3/uL (0.0-0.8); MONO % 7.7 % (2.0-8.0); NEUTROPHILS # 3.5 10^3/uL (1.5-8.5); NEUTROPHILS % 57.7 % (36.0-66.0); PLATELET COUNT, AUTOMATED 169 10^3/uL (150-450); WHITE BLOOD COUNT 6.1 10^3/uL (4.0-10.0)
[2021-05-04 06:00] VITALS: BP 116/68
[2021-05-04 06:26] LABS: BLOOD UREA NITROGEN 12 MG/DL (7-18); CALCIUM LEVEL 7.9 MG/DL (8.5-10.1); CARBON DIOXIDE LEVEL 26 MEQ/L (21-32); CHLORIDE LEVEL 112 MEQ/L (98-107); CREATININE FOR GFR 0.98 MG/DL (0.70-1.30); GLOMERULAR FILTRATION RATE > 60.0 (>56); GLUCOSE, FASTING 130 MG/DL (70-100); POTASSIUM SERUM 3.4 MEQ/L (3.5-5.1); SODIUM LEVEL 141 MEQ/L (136-145)
[2021-05-04] MEDS ORDERED: POTASSIUM CHLORIDE 10 MEQ SR TABLET PO ONE (07:15)
[2021-05-04] MEDS: LACTOBACILLUS ACIDOPHILUS CAP (BACID) PO SCH ×3 (08:06→17:11)
[2021-05-04] MEDS: metFORMIN (GLUCOPHAGE) 1000 MG TABLET PO SCH ×2 (08:06→17:11)
[2021-05-04] MEDS: ENOXAPARIN 40MG/0.4ML SYRINGE (J1650 PER 10MG) SC SCH (08:06)
[2021-05-04] MEDS: allopurinoL 300 MG TAB PO SCH (08:06)
[2021-05-04] MEDS: METOPROLOL SUCC *XL* 25MG TAB (TopROL *XL*) PO SCH (08:07)
[2021-05-04] MEDS: HumaLOG INSULIN (NovoLOG) PER UNIT SC SCH ×4 (08:08→20:39)
[2021-05-04] MEDS: LEVEMIR (INSULIN DETEMIR) 1 UNITS/0.01ML SC SCH (08:09)
[2021-05-04 09:12] LABS: C REACTIVE PROTEIN QUANTITATIV 4.29 MG/DL (0.00-0.30)
[2021-05-04 09:18] LABS: ERYTHROCYTE SEDIMENTATION RATE 52 mm/hr (0-20)
[2021-05-04 14:00] VITALS: BP 101/66
--- NOTE | 2021-05-04 15:35 | IPNPDOC ---
Date Seen The patient was seen on 05/04/21. Progress Note SUBJECTIVE: Patient remains afebrile without any chills he does not complain of pain on the left lower extremity Patient continues to have some purulent drainage at the ulcer site OBJECTIVE: PHYSICAL EXAM: VITALS: See below GENERAL: Lying in bed asleep but easily arousable answers questions appropriately without respiratory distress HEENT: Moist mucous membranes no JVD or thyromegaly LUNGS: Air entry is equal clear to auscultation no adventitious breath sounds HEART: S1, S2, sinus. Regular rate rhythm. ABDOMEN: Obese, soft, nontender, nondistended. Positive bowel sounds times four quadrants. No rebound or guarding. EXTREMITIES: 1.5 cm clean Plantar ulcer without erythema, induration, or discharge At the base of the left first metatarsal joint.. Left dorsal foot below the 1st big toe: 2.5 cm open ulcer with thick yellow purulent discharge decreasing erythema of the dorsum of the foot. No induration or crepitus LABORATORY DATA: See below IMAGING STUDY: X-ray of the left foot: No osteomyelitis. There is no fracture, dislocation, or intrinsic bone disease. A large spur is noted on the inferior calcaneus with a length of 14 mm. Soft tissue ulcer adjacent to the first metatarsophalangeal joint with adjacent soft tissue swelling. No compelling evidence of osteomyelitis. ASSESSMENT AND PLAN: This is a 51-year-old male with diabetes, hypertension, obstructive sleep apnea, and obesity, metabolic syndrome, adenomatous rectosigmoid polyps with perianal fistula, which was repaired, presents with cellulitis of the left foot with a chronic venous plantar ulcer and a new open ruptured blister along the 1st metatarsophalangeal (MTP) joint on the left foot. Patient will be admitted as an inpatient for 2 midnights. Left foot cellulitis -Status post 1 dose of IV vancomycin and IV Zosyn from the emergency room on admission -Currently on IV ceftaroline and Flagyl -decreasing erythema -improved white count to normal after 24 hours of hospital admission -To complete a 7-day course of antibiotics which can be transitioned to oral medications left diabetic dorsal foot infection with an open 2.5 cm ulcer -General surgeon Dr. 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 Bacon is on vacation for 2 weeks and currently unavailable to do debridement -Telemedicine with Dr. Bo for dressing changes chronic plantar ulcer. -X-ray shows no osteomyelitis -Clean, dry -Continue daily dressing changes Uncontrolled type 2 diabetes -Started on Levemir insulin for better glycemic control -On Metformin 1 g twice daily Obesity. -Complicating care Hypertension -Controlled Obstructive sleep apnea. -On CPAP nightly -Compliant History of a gastrointestinal (GI) bleed due to rectal fistula. -No acute complaints History of grade 3 hemorrhoids -Chronic Deep venous thrombosis (DVT) prophylaxis with Lovenox subcutaneous. Code status: Full code. Diet consistent-carbohydrate diet. VS, I&O, 24H, Fishbone Vital Signs/I&O Vital Signs Date Time Temp Pulse Resp B/P (MAP) Pulse Ox O2 Delivery O2 Flow Rate FiO2 05/04/21 14:00 98.5 56 16 101/66 (78) 98 05/04/21 06:00 Room Air I&O- Last 24 Hours up to 6 AM 05/04/21 06:00 Intake Total 1790 ml Output Total 0 ml Balance 1790 ml Laboratory Data 24H LABS Laboratory Tests 2 05/03/21 17:02: Bedside Glucose (Misc Panel) 118H 05/03/21 20:12: Bedside Glucose (Misc Panel) 136H 05/04/21 05:38: Immature Granulocyte % (Auto) 0.8, Neutrophils (%) (Auto) 57.7, Lymphocytes (%) (Auto) 28.5, Monocytes (%) (Auto) 7.7, Eosinophils (%) (Auto) 4.6H, Basophils (%) (Auto) 0.7, Neutrophils # (Auto) 3.5, Lymphocytes # (Auto) 1.7, Monocytes # (Auto) 0.5, Eosinophils # (Auto) 0.3, Basophils # (Auto) 0.0, Nucleated Red Blood Cells % (auto) 0.0, Erythrocyte Sedimentation Rate 52H, Anion Gap 3L, Terrie merular Filtration Rate > 60.0, Calcium Level 7.9L, C-Reactive Protein, Quantitative 4.29H 05/04/21 11:40: Bedside Glucose (Misc Panel) 206H CBC/BMP Laboratory Tests 05/04/21 05:38 Microbiology Microbiology 05/01/21 Blood Culture - Preliminary, Resulted No Growth after 72 hours. All specime... 05/01/21 Gram Stain - Final, Complete 05/01/21 Wound Culture - Final, Complete 05/01/21 Blood Culture - Preliminary, Resulted No Growth after 72 hours. All specime... VICKY IRENE MD May 04, 2021 15:34
[2021-05-04] MEDS: SIMVASTATIN 20 MG TAB PO SCH (20:38)
--- NOTE | 2021-05-04 21:52 | CR ---
CONSULTATION DATE: 05/04/2021 REASON FOR CONSULTATION: Left foot abscess/infection. BRIEF HISTORY OF PRESENT ILLNESS: The patient is a 51-year-old male who has been followed for a long time with Dr. Bacon, who is out of the country at this time and plans were to consult him this Tuesday, however he is actually still out of the country for this week or a second option to contact [facility] and I am not sure if they were contacted or not, but I was asked to see the patient concerning a left foot ulcer with a new onset of infected left forefoot. Fortunately he states that things have been getting better over the weekend. His white count has normalized. He has been afebrile. His sugars have been getting more under control and he states the redness has been getting better. He has noticed some increased drainage from the top of his foot, however and he had some significant blistering in that area. PAST MEDICAL HISTORY: The patient's past medical history is significant for: 1. Uncontrolled diabetes mellitus. 2. History of hypertension. 3. Obstructive sleep apnea on CPAP. 4. History of chronic plantar ulcer. 5. History of dyslipidemia. 6. Obesity. 7. Fatty liver. 8. History of GI bleed. 9. Perianal fistula - status post repair. 10. History of hypercholesterolemia. 11. Gout. MEDICATIONS: 1. Cefadroxil. 2. Hydrochlorothiazide. 3. Lisinopril. 4. Metoprolol. 5. [place] 3. 6. Simvastatin. 7. Vitamin B. 8. Allopurinol. PHYSICAL EXAMINATION: GENERAL APPEARANCE: A 51-year-old male who looks stated age. HEENT: Unremarkable. LUNGS: Clear anteriorly. HEART: Regular. ABDOMEN: Soft. EXTREMITIES: Extremity on the left reveals some edema that is about 2+ with a line showing where the erythema has been. It has regressed substantially towards the foot itself. There is some purulent drainage from the small hole on the top of his web space between the first and second digits. He has an ulcer on the bottom of his foot, although I cannot appreciate a connection bottom and the top while probing this. I am able to probe the open wound on the top of his foot and I removed some of the blister that was covering this. This wiped away easily. There was some fibrinous exudate at this opening as well that I was able to move out of the way and this helped it drain substantially. He has some undermining of the skin that is about an inch across, although once again, I am not feeling any tracking into the deep space at this time. He is able to move all of his toes without pain or discomfort. IMPRESSION AND PLAN: The patient has a foot infection. Most likely this was secondary to his plantar ulcer and at this point we have had a long discussion concerning amputations, dbridements, and most importantly, he has had significant improvement clinically as well as from his own tenderness, discomfort and swelling in this area, and thus given that this seems to be draining more today and has a better egress of fluid, I feel two things should be done: 1. Re-culture this. 2. Be a little more aggressive with the dressing changes, and we will see how he does. He might need of a debridement in opening up this area with further dressing changes, but at this point, given his improvement, it is not unreasonable to see how he does over the ensuing 12 hours.
[2021-05-04 22:00] VITALS: BP 117/59
[2021-05-05] MEDS: metroNIDAZOLE 500 MG in IV 1 EA IV SCH ×2 (04:29→13:11)
[2021-05-05 06:00] VITALS: BP 134/83
[2021-05-05 06:00] LABS: BASO % 0.6 % (0.0-1.0); EOS # 0.2 10^3/uL (0.0-0.5); EOS % 3.1 % (0.0-3.0); HEMATOCRIT 39.2 % (42.0-52.0); HEMOGLOBIN 12.8 g/dl (13.5-17.5); LYMPH # 1.6 10^3/uL (1.5-5.0); LYMPH % 22.4 % (24.0-44.0); MEAN CORPUSCULAR HEMOGLOBIN 29.5 pg (27.0-33.0); MEAN CORPUSCULAR HGB CONC 32.7 g/dl (32.0-36.5); MEAN CORPUSCULAR VOLUME 90.3 fl (80.0-96.0); MONO # 0.4 10^3/uL (0.0-0.8); NEUTROPHILS # 4.8 10^3/uL (1.5-8.5); NEUTROPHILS % 67.1 % (36.0-66.0); PLATELET COUNT, AUTOMATED 165 10^3/uL (150-450); RED BLOOD COUNT 4.34 10^6/uL (4.30-6.10); WHITE BLOOD COUNT 7.2 10^3/uL (4.0-10.0)
[2021-05-05] MEDS: CEFTAROLINE FOSAMIL 600 MG in D5W MINI-BAG PLUS 50 ML IV SCH (06:06)
[2021-05-05 06:17] LABS: BLOOD UREA NITROGEN 11 MG/DL (7-18); CALCIUM LEVEL 7.9 MG/DL (8.5-10.1); CARBON DIOXIDE LEVEL 26 MEQ/L (21-32); CHLORIDE LEVEL 112 MEQ/L (98-107); CREATININE FOR GFR 0.99 MG/DL (0.70-1.30); GLOMERULAR FILTRATION RATE > 60.0 (>56); GLUCOSE, FASTING 151 MG/DL (70-100); POTASSIUM SERUM 4.1 MEQ/L (3.5-5.1); SODIUM LEVEL 144 MEQ/L (136-145)
[2021-05-05] MEDS: metFORMIN (GLUCOPHAGE) 1000 MG TABLET PO SCH ×2 (08:40→17:37)
[2021-05-05] MEDS: allopurinoL 300 MG TAB PO SCH (08:40)
[2021-05-05] MEDS: ENOXAPARIN 40MG/0.4ML SYRINGE (J1650 PER 10MG) SC SCH (08:40)
[2021-05-05] MEDS: LACTOBACILLUS ACIDOPHILUS CAP (BACID) PO SCH ×3 (08:40→17:37)
[2021-05-05] MEDS: METOPROLOL SUCC *XL* 25MG TAB (TopROL *XL*) PO SCH (08:41)
[2021-05-05] MEDS: HumaLOG INSULIN (NovoLOG) PER UNIT SC SCH ×2 (08:41→13:11)
[2021-05-05] MEDS ORDERED: LEVEMIR (INSULIN DETEMIR) 1 UNITS/0.01ML SC SCH (09:00)
--- NOTE | 2021-05-05 13:21 | IPNPDOC ---
Subjective Date Seen The patient was seen on 05/05/21. Subjective Chief Complaint/HPI Feeling much better today foot pain is controlled, redness is mostly gone, no fever or chills. Objective Physical Examination General Exam: Positive: Alert, Cooperative, No Acute Distress Eye Exam: Positive: PERRLA, Conjunctiva & lids normal, EOMI; Negative: Sclera icteric ENT Exam: Positive: Atraumatic, Mucous membr. moist/pink, Pharynx Normal Neck Exam: Positive: Supple; Negative: JVD, thyromegaly Chest Exam: Positive: Clear to auscultation, Normal air movement Heart Exam: Positive: Rate Normal, Regular Rhythm, Normal S1, Normal S2; Negative: Murmurs, Rubs Abdomen Exam: Positive: Normal bowel sounds, Soft; Negative: Tenderness Extremity Exam: Negative: Clubbing, Cyanosis, Edema Skin Exam: Positive: Other skin issue (Left foot plantar ulcer at the base of the first toe, left foot ulcer on the dorsum in between the first and the second toe) Neuro Exam: Positive: Normal Speech, Strength at 5/5 X4 ext, Normal Tone Psych Exam: Positive: Memory Intact, Oriented x 3 Assessment /Plan Assessment This is a 51-year-old male with diabetes, hypertension, obstructive sleep apnea, and obesity, metabolic syndrome, adenomatous rectosigmoid polyps with perianal fistula, which was repaired, presents with cellulitis of the left foot with a chronic venous plantar ulcer and a new open ruptured blister along the 1st metatarsophalangeal (MTP) joint on the left foot. 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 Bo for dressing changes Blister on the dorsum of the foot was deroofed by Dr. Bailey percent for culture Wound culture pending Blood cultures negative till date Chronic plantar ulcer. X-ray shows no osteomyelitis Clean, with some fresh bleeding Continue daily dressing changes Uncontrolled type 2 diabetes Started on Levemir insulin for better glycemic control On Metformin 1 g twice daily at home Obesity. Complicating care Hypertension Controlled Obstructive sleep apnea. On CPAP nightly Compliant History of a gastrointestinal (GI) bleed due to rectal fistula. No acute complaints History of grade 3 hemorrhoids Chronic Plan/VTE VTE Prophylaxis Ordered?: Yes VS, I&O, 24H, Fishbone Vital Signs/I&O Vital Signs Date Time Temp Pulse Resp B/P (MAP) Pulse Ox O2 Delivery O2 Flow Rate FiO2 05/05/21 08:41 62 134/83 05/05/21 06:00 97.3 17 98 Room Air I&O- Last 24 Hours up to 6 AM 05/05/21 06:00 Intake Total 850 ml Balance 850 ml Laboratory Data 24H LABS Laboratory Tests 2 05/04/21 16:15: Bedside Glucose (Misc Panel) 149H 05/04/21 19:59: Bedside Glucose (Misc Panel) 167H 05/05/21 05:28: Immature Granulocyte % (Auto) 0.8, Neutrophils (%) (Auto) 67.1H, Lymphocytes (%) (Auto) 22.4L, Monocytes (%) (Auto) 6.0, Eosinophils (%) (Auto) 3.1H, Basophils (%) (Auto) 0.6, Neutrophils # (Auto) 4.8, Lymphocytes # (Auto) 1.6, Monocytes # (Auto) 0.4, Eosinophils # (Auto) 0.2, Basophils # (Auto) 0.0, Nucleated Red Blood Cells % (auto) 0.0, Anion Gap 6L, Glomerular Filtration Rate > 60.0, Calcium Level 7.9L 05/05/21 11:29: Bedside Glucose (Misc Panel) 180H CBC/BMP Laboratory Tests 05/05/21 05:28 Microbiology Microbiology 05/05/21 Gram Stain, Received Pending 05/05/21 Abscess Culture, Received Pending 05/01/21 Blood Culture - Preliminary, Resulted No Growth after 72 hours. All specime... 05/01/21 Gram Stain - Final, Resulted 05/01/21 Wound Culture - Preliminary, Resulted 05/01/21 Blood Culture - Preliminary, Resulted No Growth after 72 hours. All specime... NAYELY CATALAN MD May 05, 2021 13:21
[2021-05-05 14:00] VITALS: BP 130/90
[2021-05-05] MEDS: PIPERACILLIN/TAZOBACTAM SOD 3.375 GM in D5W MINI-BAG PLUS 50 ML IV SCH ×2 (15:27→20:35)
[2021-05-05] MEDS: glipiZIDE (GLUCOTROL) 5 MG TAB PO SCH (17:37)
[2021-05-05] MEDS: SIMVASTATIN 20 MG TAB PO SCH (20:35)
[2021-05-05] MEDS: LEVEMIR (INSULIN DETEMIR) 1 UNITS/0.01ML SC SCH (21:00)
[2021-05-05 22:00] VITALS: BP 123/71
[2021-05-06] MEDS: PIPERACILLIN/TAZOBACTAM SOD 3.375 GM in D5W MINI-BAG PLUS 50 ML IV SCH ×4 (02:32→20:53)
[2021-05-06 06:00] VITALS: BP 141/90
[2021-05-06 06:04] LABS: BASO % 0.3 % (0.0-1.0); EOS # 0.2 10^3/uL (0.0-0.5); EOS % 2.5 % (0.0-3.0); HEMATOCRIT 38.5 % (42.0-52.0); HEMOGLOBIN 12.7 g/dl (13.5-17.5); LYMPH # 1.6 10^3/uL (1.5-5.0); LYMPH % 16.9 % (24.0-44.0); MEAN CORPUSCULAR HEMOGLOBIN 29.5 pg (27.0-33.0); MEAN CORPUSCULAR VOLUME 89.3 fl (80.0-96.0); MONO # 0.5 10^3/uL (0.0-0.8); MONO % 5.4 % (2.0-8.0); NEUTROPHILS # 6.9 10^3/uL (1.5-8.5); NEUTROPHILS % 74.3 % (36.0-66.0); PLATELET COUNT, AUTOMATED 205 10^3/uL (150-450); RED BLOOD COUNT 4.31 10^6/uL (4.30-6.10); WHITE BLOOD COUNT 9.2 10^3/uL (4.0-10.0)
[2021-05-06 06:33] LABS: BLOOD UREA NITROGEN 8 MG/DL (7-18); CALCIUM LEVEL 7.7 MG/DL (8.5-10.1); CARBON DIOXIDE LEVEL 27 MEQ/L (21-32); CHLORIDE LEVEL 114 MEQ/L (98-107); CREATININE FOR GFR 1.07 MG/DL (0.70-1.30); GLOMERULAR FILTRATION RATE > 60.0 (>56); GLUCOSE, FASTING 97 MG/DL (70-100); POTASSIUM SERUM 3.6 MEQ/L (3.5-5.1); SODIUM LEVEL 144 MEQ/L (136-145)
[2021-05-06 07:49] LABS: C REACTIVE PROTEIN QUANTITATIV 1.27 MG/DL (0.00-0.30)
[2021-05-06] MEDS: metFORMIN (GLUCOPHAGE) 1000 MG TABLET PO SCH ×2 (08:00→18:23)
[2021-05-06] MEDS: allopurinoL 300 MG TAB PO SCH (09:01)
[2021-05-06] MEDS: ENOXAPARIN 40MG/0.4ML SYRINGE (J1650 PER 10MG) SC SCH (09:01)
[2021-05-06] MEDS: LACTOBACILLUS ACIDOPHILUS CAP (BACID) PO SCH ×3 (09:01→18:23)
[2021-05-06] MEDS: glipiZIDE (GLUCOTROL) 5 MG TAB PO SCH ×2 (09:01→18:23)
[2021-05-06] MEDS: METOPROLOL SUCC *XL* 25MG TAB (TopROL *XL*) PO SCH (09:02)
--- NOTE | 2021-05-06 11:59 | IPNPDOC ---
Subjective Date Seen The patient was seen on 05/06/21. Subjective Chief Complaint/HPI Feeling better. The pain, redness and swelling of the foot has all gone down. Objective Physical Examination General Exam: Positive: Alert, Cooperative, No Acute Distress Eye Exam: Positive: PERRLA, Conjunctiva & lids normal, EOMI; Negative: Sclera icteric ENT Exam: Positive: Atraumatic, Mucous membr. moist/pink, Pharynx Normal Neck Exam: Positive: Supple; Negative: JVD, thyromegaly Chest Exam: Positive: Clear to auscultation, Normal air movement Heart Exam: Positive: Rate Normal, Regular Rhythm, Normal S1, Normal S2; Negative: Murmurs, Rubs Abdomen Exam: Positive: Normal bowel sounds, Soft; Negative: Tenderness Extremity Exam: Negative: Clubbing, Cyanosis, Edema Skin Exam: Positive: Other skin issue (Left foot plantar ulcer at the base of the first toe, left foot ulcer on the dorsum in between the first and the second toe) Neuro Exam: Positive: Normal Speech, Strength at 5/5 X4 ext, Normal Tone Psych Exam: Positive: Memory Intact, Oriented x 3 Assessment /Plan Assessment This is a 51-year-old male with diabetes, hypertension, obstructive sleep apnea, and obesity, metabolic syndrome, adenomatous rectosigmoid polyps with perianal fistula, which was repaired, presents with cellulitis of the left foot with a chronic venous plantar ulcer and a new open ruptured blister along the 1st metatarsophalangeal (MTP) joint on the left foot. 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 Wound culture pending Blood cultures negative till date Wound care as per Dr Bailey Chronic plantar ulcer. X-ray shows no osteomyelitis Clean, with some fresh bleeding Continue daily dressing changes Uncontrolled type 2 diabetes pateitn had stoppd taking metformin for several months due to Diarrhea Started on Levemir insulin for better glycemic control. Has not needed it for the past 2 days Will also give him glipizide Insulin teaching Obesity. Complicating care Hypertension Controlled Obstructive sleep apnea. On CPAP nightly Compliant History of a gastrointestinal (GI) bleed due to rectal fistula. No acute complaints History of grade 3 hemorrhoids Chronic Plan/VTE VTE Prophylaxis Ordered?: Yes VS, I&O, 24H, Fishbone Vital Signs/I&O Vital Signs Date Time Temp Pulse Resp B/P (MAP) Pulse Ox O2 Delivery O2 Flow Rate FiO2 05/06/21 09:02 71 141/90 05/06/21 06:00 98.3 18 99 Room Air I&O- Last 24 Hours up to 6 AM 05/06/21 06:00 Intake Total 1230 ml Balance 1230 ml Laboratory Data 24H LABS Laboratory Tests 2 05/05/21 16:38: Bedside Glucose (Misc Panel) 98 05/05/21 19:45: Bedside Glucose (Misc Panel) 134H 05/06/21 00:00: Bedside Glucose (Misc Panel) 72 05/06/21 05:27: Immature Granulocyte % (Auto) 0.6, Neutrophils (%) (Auto) 74.3H, Lymphocytes (%) (Auto) 16.9L, Monocytes (%) (Auto) 5.4, Eosinophils (%) (Auto) 2.5, Basophils (%) (Auto) 0.3, Neutrophils # (Auto) 6.9, Lymphocytes # (Auto) 1.6, Monocytes # (Auto) 0.5, Eosinophils # (Auto) 0.2, Basophils # (Auto) 0.0, Nucleated Red Bl ood Cells % (auto) 0.0, Anion Gap 3L, Glomerular Filtration Rate > 60.0, Calcium Level 7.7L, C-Reactive Protein, Quantitative 1.27H CBC/BMP Laboratory Tests 05/06/21 05:27 Microbiology Microbiology 05/05/21 Gram Stain - Final, Resulted 05/05/21 Abscess Culture, Resulted Pending 05/01/21 Blood Culture - Preliminary, Resulted No Growth after 72 hours. All specime... 05/01/21 Gram Stain - Final, Resulted 05/01/21 Wound Culture - Preliminary, Resulted 05/01/21 Blood Culture - Preliminary, Resulted No Growth after 72 hours. All specime... NAYELY CATALAN MD May 06, 2021 11:59
[2021-05-06 14:00] VITALS: BP 149/90
--- NOTE | 2021-05-06 14:05 | IPN ---
PROGRESS NOTE DATE: 05/05/2021 SUBJECTIVE: The patient has been doing well. He states the redness was looking better this morning with his dressing change and is having less discomfort and swelling along that area. He has not had any fevers. OBJECTIVE: The amount of cellulitis and edema has decreased and I am able to probe the site and indeed the overall site is much smaller, the pocket is much smaller. I was able to irrigate this nicely. There is much less purulent discharge at this point. I am still not able to advance this into deep subcutaneous tissue but overall at this point the patient seems to be making some slow but progressive improvements. We have had a discussion whether aggressive intervention is necessary or whether we can continue on this slow but continuous improvement strategy and given his improvement I do feel that I will see how he does tomorrow morning and then we can make a determination of our next step.
--- NOTE | 2021-05-06 14:09 | IPN ---
PROGRESS NOTE DATE: 05/06/2021 SUBJECTIVE: The patient continues to have some slow but progressive improvement and from his standpoint the cellulitis continues to get less, the amount of drainage is less and overall the pocket size that I appreciate is getting less everyday. There is a question whether there is a smaller opening up higher that is where this might also tend to open up and drain. Overall, given his improvement I do feel that we can continue with current treatment, however I have discussed with him possibly opening up this just a little bit more and given that he is having improvements it is reasonable to continue with his current course. Also, I have discussed with him that opening it up a little bit may make it easier for dressing changes and wound care. I will discuss this with him later on again today and my guess is that he should be ready for discharge tomorrow with plans to follow-up with Podiatry next week.
[2021-05-06] MEDS: SIMVASTATIN 20 MG TAB PO SCH (20:53)
[2021-05-06] MEDS: LEVEMIR (INSULIN DETEMIR) 1 UNITS/0.01ML SC SCH (20:56)
[2021-05-06 21:00] VITALS: BP 150/85
[2021-05-07] MEDS: PIPERACILLIN/TAZOBACTAM SOD 3.375 GM in D5W MINI-BAG PLUS 50 ML IV SCH ×2 (02:27→09:22)
[2021-05-07 05:59] LABS: BASO % 0.5 % (0.0-1.0); EOS # 0.3 10^3/uL (0.0-0.5); HEMOGLOBIN 13.1 g/dl (13.5-17.5); LYMPH # 1.8 10^3/uL (1.5-5.0); LYMPH % 23.9 % (24.0-44.0); MEAN CORPUSCULAR HEMOGLOBIN 29.8 pg (27.0-33.0); MEAN CORPUSCULAR HGB CONC 32.8 g/dl (32.0-36.5); MEAN CORPUSCULAR VOLUME 91.1 fl (80.0-96.0); MONO # 0.5 10^3/uL (0.0-0.8); MONO % 6.5 % (2.0-8.0); NEUTROPHILS # 4.9 10^3/uL (1.5-8.5); NEUTROPHILS % 64.2 % (36.0-66.0); PLATELET COUNT, AUTOMATED 195 10^3/uL (150-450); RED BLOOD COUNT 4.39 10^6/uL (4.30-6.10); WHITE BLOOD COUNT 7.6 10^3/uL (4.0-10.0)
[2021-05-07 06:03] VITALS: BP 136/80
[2021-05-07 06:25] LABS: BLOOD UREA NITROGEN 8 MG/DL (7-18); CALCIUM LEVEL 8.1 MG/DL (8.5-10.1); CARBON DIOXIDE LEVEL 29 MEQ/L (21-32); CHLORIDE LEVEL 112 MEQ/L (98-107); CREATININE FOR GFR 1.09 MG/DL (0.70-1.30); GLOMERULAR FILTRATION RATE > 60.0 (>56); GLUCOSE, FASTING 89 MG/DL (70-100); POTASSIUM SERUM 3.9 MEQ/L (3.5-5.1); SODIUM LEVEL 145 MEQ/L (136-145)
[2021-05-07] MEDS: ENOXAPARIN 40MG/0.4ML SYRINGE (J1650 PER 10MG) SC SCH (09:22)
[2021-05-07] MEDS: glipiZIDE (GLUCOTROL) 5 MG TAB PO SCH (09:22)
[2021-05-07] MEDS: LACTOBACILLUS ACIDOPHILUS CAP (BACID) PO SCH (09:22)
[2021-05-07] MEDS: metFORMIN (GLUCOPHAGE) 1000 MG TABLET PO SCH (09:22)
[2021-05-07] MEDS: allopurinoL 300 MG TAB PO SCH (09:23)
[2021-05-07 09:24] VITALS: BP 150/85
[2021-05-07] MEDS: METOPROLOL SUCC *XL* 25MG TAB (TopROL *XL*) PO SCH (09:24)
[2021-05-07] MEDS ORDERED: LEVO750T13 PO (09:33)
[2021-05-07] MEDS ORDERED: GLIP5TAB8 PO (09:33)
[2021-05-07] MEDS ORDERED: METF500T13 PO (09:33)
--- NOTE | 2021-05-07 12:02 | DS.PDOC ---
Discharge Summary General Date of Admission May 01, 2021 at 14:37 Date of Discharge 05/07/21 Discharge Summary PROCEDURES PERFORMED DURING STAY: [None]. DISCHARGE DIAGNOSES: Left foot cellulitis and abscess on the dorsal aspect Left foot chronic plantar ulcer Diabetes Obesity ANCA Hypertension COMPLICATIONS/CHIEF COMPLAINT: Diabetic Infection Of Left Foot. HOSPITAL COURSE: This is a 51-year-old male with diabetes, hypertension, obstructive sleep apnea, and obesity, metabolic syndrome, adenomatous recto sigmoid polyps with perianal fistula, which was repaired, presents with cellulitis of the left foot with a chronic venous plantar ulcer and a new open ruptured blister along the 1st metatarsophalangeal (MTP) joint on the left foot. Patient was admitted for diabetic left foot infection Left foot cellulitis and abscess with plantar chronic ulcer and dorsal open wound about 2.5 cm initially treated with ceftaroline and Flagyl from 05/01/2021, MRSA PCR is negative changed to Zosyn till 05/07/21. 1/2 abscess cultures grew enterococcus. discharged with levofloxacin and cefadroxil. Final Wound cultures pending Blood cultures negative till date Wound care with peroxide flushes bid and cover with dry dressing. Chronic plantar ulcer. X-ray shows no osteomyelitis Clean, with some fresh bleeding Continue daily dressing changes Uncontrolled type 2 diabetes patient had stoppd taking metformin for several months due to Diarrhea Discussed with glipizide and lower dose of Metformin. Obesity. Complicating care Hypertension Controlled Obstructive sleep apnea. On CPAP nightly Compliant History of a gastrointestinal (GI) bleed due to rectal fistula. No acute complaints History of grade 3 hemorrhoids Chronic DISCHARGE MEDICATIONS: Please see below. ALLERGIES: Please see below. PHYSICAL EXAMINATION ON DISCHARGE: VITAL SIGNS: Please see below. General Exam: Positive: Alert, Cooperative, No Acute Distress Eye Exam: Positive: PERRLA, Conjunctiva & lids normal, EOMI; Negative: Sclera icteric ENT Exam: Positive: Atraumatic, Mucous membr. moist/pink, Pharynx Normal Neck Exam: Positive: Supple; Negative: JVD, thyromegaly Chest Exam: Positive: Clear to auscultation, Normal air movement Heart Exam: Positive: Rate Normal, Regular Rhythm, Normal S1, Normal S2; Negative: Murmurs, Rubs Abdomen Exam: Positive: Normal bowel sounds, Soft; Negative: Tenderness Extremity Exam: Negative: Clubbing, Cyanosis, Edema Skin Exam: Positive: Other skin issue (Left foot plantar ulcer at the base of the first toe, left foot ulcer on the dorsum in between the first and the second toe) Neuro Exam: Positive: Normal Speech, Strength at 5/5 X4 ext, Normal Tone Psych Exam: Positive: Memory Intact, Oriented x 3 LABORATORY DATA: Please see below. ACTIVITY: [As tolerated]. DIET: Carb consistent DISCHARGE PLAN: Home DISCHARGE INSTRUCTIONS: Follow-up Dr. Bailey in 1 week Follow-up with Dr. Bacon in 1 to 2 weeks Dressing changes twice a day. Flushed with peroxide and then dry gauze over it Follow-up final wound cultures DISCHARGE CONDITION: [Stable]. TIME SPENT ON DISCHARGE: 35 minutes. Vital Signs/I&Os Vital Signs Date Time Temp Pulse Resp B/P (MAP) Pulse Ox O2 Delivery O2 Flow Rate FiO2 05/07/21 09:24 62 150/85 05/07/21 06:03 98.2 18 98 Room Air I&O- Last 24 Hours up to 6 AM 05/07/21 06:00 Intake Total 1315 ml Balance 1315 ml Laboratory Data Labs 24H Laboratory Tests 2 05/06/21 11:53: Bedside Glucose (Misc Panel) 163H 05/06/21 16:49: Bedside Glucose (Misc Panel) 167H 05/06/21 20:18: Bedside Glucose (Misc Panel) 176H 05/06/21 23:53: Bedside Glucose (Misc Panel) 87 05/07/21 05:41: Immature Granulocyte % (Auto) 0.9, Neutrophils (%) (Auto) 64.2, Lymphocytes (%) (Auto) 23.9L, Monocytes (%) (Auto) 6.5, Eosinophils (%) (Auto) 4.0H, Basophils (%) (Auto) 0.5, Neutrophils # (Auto) 4.9, Lymphocytes # (Auto) 1.8, Monocytes # (Auto) 0.5, Eosinophils # (Auto) 0.3, Basophils # (Auto) 0.0, Nucleated Red Blood Cells % (auto) 0.0, Anion Gap 4L, Glomerular Filtration Rate > 60.0, Calcium Level 8.1L 05/07/21 11:43: Bedside Glucose (Misc Panel) 156H CBC/BMP Laboratory Tests 05/07/21 05:41 FSBS Laboratory Tests Test 05/06/21 11:53 05/06/21 16:49 05/06/21 20:18 05/06/21 23:53 Range/Units Bedside Glucose (Misc Panel) 163 167 176 87 70-105 MG/DL Test 05/07/21 11:43 Range/Units Bedside Glucose (Misc Panel) 156 70-105 MG/DL Microbiology Microbiology 05/05/21 Gram Stain - Final, Resulted 05/05/21 Abscess Culture, Resulted Pending 05/01/21 Blood Culture - Final, Complete NO GROWTH AFTER 5 DAYS 05/01/21 Gram Stain - Final, Complete 05/01/21 Wound Culture - Final, Complete Enterococcus Faecalis 05/01/21 Blood Culture - Final, Complete NO GROWTH AFTER 5 DAYS Discharge Medications Scheduled Cefadroxil Monohydrate (Cefadroxil) 500 Mg Capsule, 500 MG PO TID, (Reported) STARTED 04/29/21 FOR 7 DAYS Glipizide (Glipizide) 5 Mg Tablet, 5 MG PO BID@0730,1730 Levofloxacin (Levofloxacin) 750 Mg Tablet, 1 TAB PO DAILY Lisinopril (Lisinopril) 40 Mg Tablet, 40 MG PO DAILY, (Reported) Metformin HCl (Metformin HCl) 500 Mg Tablet, 1 TAB PO BID Metoprolol Succinate (Metoprolol Succinate) 50 Mg Tab.er.24h, 75 MG PO DAILY, (Reported) [place]-3 Fatty Acids/Fish Oil (Fish Oil 1,000 mg Capsule) 1 Each Capsule, 1,000 MG PO DAILY, (Reported) Simvastatin (Simvastatin) 20 Mg Tablet, 20 MG PO QHS, (Reported) Vitamin B Complex (Vitamin B Complex) 1 Each Tablet, 1 TAB PO DAILY, (Reported) allopurinoL (allopurinoL) 300 Mg Tablet, 300 MG PO DAILY, (Reported) Allergies Coded Allergies: No Known Allergies (Verified , 05/10/07) NAYELY CATALAN MD May 07, 2021 12:02
== END 2021-05-07 12:15 | disposition home or self-care (01) | DRG 380 ==
LOC: M ED 09:12 → M ED INP 14:37 → ENRESERV 15:00 → M MSPAV 17:14
PROVIDERS: ADMIT General Practice; ATTEND Internal Medicine Nephrology
DX: E11.621 Type 2 diabetes mellitus with foot ulcer (principal); E87.2 Acidosis; L97.529 Non-pressure chronic ulcer of other part of left foot with unspecified severity; K76.0 Fatty (change of) liver, not elsewhere classified; I10 Essential (primary) hypertension; G47.33 Obstructive sleep apnea (adult) (pediatric); K64.2 Third degree hemorrhoids; L03.116 Cellulitis of left lower limb; E78.5 Hyperlipidemia, unspecified; E66.9 Obesity, unspecified; Z68.32 Body mass index [BMI] 32.0-32.9, adult; Z79.899 Other long term (current) drug therapy; Z20.822 Contact with and (suspected) exposure to COVID-19

== ENCOUNTER → 2021-05-20 | Outpatient (REF) | payer OTHER, BC ==
[~2021-05-20] MED LIST changes: +ALLO300T2 PO; +CEFA500C2 PO; +EQL50TAB2 PO; +FISH1000 PO; +GLIP5TAB8 PO; +HYDR-3490 PO; +LEVO750T13 PO; +LISI40TA4 PO; +METF500T13 PO; +METO1TAB7 PO; +SIMV20TA22 PO
== END ==
LOC: M LAB REF 16:43
PROVIDERS: ATTEND Nurse Practitioner Adult Health
DX: R79.82 Elevated C-reactive protein (CRP) (principal)

== ENCOUNTER → 2022-07-19 | Outpatient (REF) | payer OTHER, BC ==
[~2022-07-19] MED LIST changes: +LEVO1TAB40 PO; -LEVO750T13 PO; -LISI-898 PO; +LISI5TAB11 PO
== END ==
LOC: M LAB REF 16:55
PROVIDERS: ATTEND Podiatrist
DX: L03.031 Cellulitis of right toe (principal); M79.671 Pain in right foot

== ENCOUNTER → 2022-10-18 | Outpatient (REF) | payer OTHER, BC | LOC: M LAB REF 09:38 | PROVIDERS: ATTEND Podiatrist | DX: L03.031 Cellulitis of right toe (principal); M79.671 Pain in right foot ==

== ENCOUNTER 2023-08-14 08:44 | Inpatient (IN) | payer BC, OTHER ==
[~2023-08-14] VITALS: Ht 182.9 cm; Wt 114.2 kg
[~2023-08-14 08:44] MED LIST changes: +GLIP5TAB17 PO; -GLIP5TAB8 PO
[2023-08-14] MEDS ORDERED: ALOG6.25 PO (08:56)
[2023-08-14] MEDS ORDERED: CEPH500C PO (08:56)
[2023-08-14] MEDS ORDERED: INDO-16 (08:56)
[2023-08-14] MEDS ORDERED: HYDR12.55 PO (08:56)
[2023-08-14] MEDS ORDERED: CLIN-250 PO (08:56)
[2023-08-14] MEDS ORDERED: FARX1TAB5 PO (08:56)
[2023-08-14] MEDS ORDERED: NS 1,000 ML IV ONE (09:30)
[2023-08-14] MEDS ORDERED: MED REC IN PROGRESS XX SCH (10:10)
[2023-08-14 10:20] LABS: BASO # 0.1 10^3/uL (0.0-0.2); BASO % 0.4 % (0.0-1.0); EOS # 0.1 10^3/uL (0.0-0.5); EOS % 0.5 % (0.0-3.0); HEMATOCRIT 45.7 % (42.0-52.0); LYMPH # 1.5 10^3/uL (1.5-5.0); LYMPH % 11.5 % (24.0-44.0); MEAN CORPUSCULAR HEMOGLOBIN 29.2 pg (27.0-33.0); MEAN CORPUSCULAR HGB CONC 32.8 g/dl (32.0-36.5); MEAN CORPUSCULAR VOLUME 88.9 fl (80.0-96.0); NEUTROPHILS # 10.1 10^3/uL (1.5-8.5); NEUTROPHILS % 79.1 % (36.0-66.0); PLATELET COUNT, AUTOMATED 271 10^3/uL (150-450); RED BLOOD COUNT 5.14 10^6/uL (4.30-6.10); WHITE BLOOD COUNT 12.8 10^3/uL (4.0-10.0)
[2023-08-14] MEDS ORDERED: METO1TAB33 PO (10:36)
[2023-08-14] MEDS ORDERED: GLIP5TAB17 PO (10:36)
[2023-08-14] MEDS ORDERED: VITA1CAP4 PO (10:36)
[2023-08-14] MEDS ORDERED: GLUCCAP23 PO (10:36)
[2023-08-14] MEDS ORDERED: OMEG10002 PO (10:36)
[2023-08-14 10:42] LABS: BLOOD UREA NITROGEN 21 MG/DL (9-23); CARBON DIOXIDE LEVEL 23 MMOL/L (20-31); CHLORIDE LEVEL 105 MMOL/L (98-107); CREATININE FOR GFR 1.26 MG/DL (0.70-1.30); GLOMERULAR FILTRATION RATE > 60.0 (>56); GLUCOSE, FASTING 96 MG/DL (60-100); POTASSIUM SERUM 4.5 MMOL/L (3.5-5.1); SODIUM LEVEL 139 MMOL/L (136-145)
[2023-08-14] MEDS ORDERED: HOME MED LIST COMPLETE! XX SCH (10:45)
[2023-08-14] MEDS ORDERED: PIPERACILLIN/TAZOBACTAM SOD 4.5 GM in D5W MINI-BAG PLUS 50 ML IV ONE (10:45)
[2023-08-14 10:50] LABS: ERYTHROCYTE SEDIMENTATION RATE 80 mm/hr (0-20)
[2023-08-14] MEDS ORDERED: VANCOMYCIN HCL 2,000 MG in D5W 500 ML IV ONE (10:50)
[2023-08-14] MEDS ORDERED: VANCOMYCIN HCL 1,000 MG, VIAL MATE ADAPTER 1 EACH in D5W 250 ML IV SCH (11:05)
[2023-08-14] MEDS ORDERED: GLUCOSE 4GM CHEW TABLET PO PRN (11:05)
[2023-08-14] MEDS ORDERED: GLUCAGON INJ 1MG VIAL SC PRN (11:05)
[2023-08-14] MEDS ORDERED: ACETAMINOPHEN 500 MG TAB PO PRN (11:05)
[2023-08-14] MEDS ORDERED: DEXTROSE 50% 50ML SYRINGE IV PRN (11:05)
[2023-08-14 11:34] LABS: HEMOGLOBIN A1c 5.2 % (4.0-6.0)
[2023-08-14] MEDS ORDERED: VANCOMYCIN HCL 1,000 MG, VIAL MATE ADAPTER 1 EACH in D5W 250 ML IV ONE ×4 (12:00→15:00)
[2023-08-14 12:45] VITALS: BP 145/82; TEMP 99.3; O2SAT 99
[2023-08-14] MEDS: INSULIN LISPRO (NovoLOG) PER UNIT SC SCH ×2 (13:12→17:50)
[2023-08-14] MEDS: PIPERACILLIN/TAZOBACTAM SOD 3.375 GM in D5W MINI-BAG PLUS 50 ML IV SCH (17:50)
[2023-08-14 20:00] VITALS: BP 132/65; TEMP 98.8; O2SAT 97
[2023-08-14] MEDS ORDERED: INSULIN LISPRO (NovoLOG) PER UNIT SC SCH (21:00)
[2023-08-14] MEDS: glipiZIDE (GLUCOTROL) 5 MG TAB PO SCH (21:00)
[2023-08-14] MEDS: DOCUSATE SODIUM 100MG CAPSULE PO SCH (21:00)
[2023-08-14] MEDS: SIMVASTATIN 20 MG TAB PO SCH (21:00)
[2023-08-14] MEDS: VANCOMYCIN HCL 1,000 MG, VIAL MATE ADAPTER 1 EACH in D5W 250 ML IV SCH (21:32)
[2023-08-15] VITALS (8 sets, daily range): BP systolic 117–132; BP diastolic 68–78; TEMP 97.6–99.4; O2SAT 93–100
[2023-08-15] MEDS: PIPERACILLIN/TAZOBACTAM SOD 3.375 GM in D5W MINI-BAG PLUS 50 ML IV SCH ×4 (00:32→17:10)
[2023-08-15 07:09] LABS: BLOOD UREA NITROGEN 19 MG/DL (9-23); CALCIUM LEVEL 8.5 MG/DL (8.5-10.1); CARBON DIOXIDE LEVEL 23 MMOL/L (20-31); CHLORIDE LEVEL 108 MMOL/L (98-107); CREATININE FOR GFR 1.23 MG/DL (0.70-1.30); GLOMERULAR FILTRATION RATE > 60.0 (>56); GLUCOSE, FASTING 114 MG/DL (60-100); POTASSIUM SERUM 4.3 MMOL/L (3.5-5.1); SODIUM LEVEL 142 MMOL/L (136-145)
[2023-08-15] MEDS: INSULIN LISPRO (NovoLOG) PER UNIT SC SCH ×4 (07:30→20:48)
[2023-08-15] MEDS: ENOXAPARIN 40MG/0.4ML SYRINGE (J1650 PER 10MG) SC SCH (08:28)
[2023-08-15] MEDS: DOCUSATE SODIUM 100MG CAPSULE PO SCH ×2 (08:29→20:55)
[2023-08-15] MEDS: glipiZIDE (GLUCOTROL) 5 MG TAB PO SCH (08:29)
[2023-08-15] MEDS: allopurinoL 300 MG TAB PO SCH (08:29)
[2023-08-15] MEDS: METOPROLOL SUCC (TopROL XL) 100MG *XL* TAB PO SCH (08:30)
[2023-08-15] MEDS: VANCOMYCIN HCL 1,000 MG, VIAL MATE ADAPTER 1 EACH in D5W 250 ML IV SCH ×2 (10:48→22:35)
[2023-08-15] MEDS: D5W/0.9% SODIUM CHLORIDE 1,000 ML IV SCH ×2 (12:29→21:04)
[2023-08-15] MEDS ORDERED: LIDOCAINE 2% MDV 20ML VIAL As Ordered ONE (17:29)
[2023-08-15] MEDS ORDERED: propofoL 200 MG/20 ML VIAL As Ordered ONE ×2 (17:30→18:05)
[2023-08-15] MEDS ORDERED: LIDOCAINE 2% 100MG/5ML SDV (FOR ANES.) As Ordered ONE (17:30)
[2023-08-15] MEDS ORDERED: MIDAZOLAM INJ 2MG/2ML VIAL As Ordered ONE (17:31)
[2023-08-15] MEDS ORDERED: fentaNYL 100 MCG/2 ML INJECTION As Ordered ONE (17:31)
[2023-08-15] MEDS ORDERED: GENTAMICIN SULF 80MG/2ML VIAL As Ordered ONE (17:54)
[2023-08-15] MEDS: SIMVASTATIN 20 MG TAB PO SCH (20:55)
[2023-08-15] MEDS: LEVEMIR (INSULIN DETEMIR) 1 UNITS/0.01ML SC SCH (20:56)
[2023-08-15] MEDS ORDERED: glipiZIDE *2.5MG* 1/2 TABLET PO SCH (21:00)
[2023-08-16] VITALS: BP 115/68; TEMP 98.8; O2SAT 95
[2023-08-16] MEDS: PIPERACILLIN/TAZOBACTAM SOD 3.375 GM in D5W MINI-BAG PLUS 50 ML IV SCH ×4 (00:08→17:36)
[2023-08-16 04:00] VITALS: BP 140/73; TEMP 98.1; O2SAT 99
[2023-08-16 06:11] LABS: BASO % 0.6 % (0.0-1.0); EOS # 0.2 10^3/uL (0.0-0.5); EOS % 2.2 % (0.0-3.0); HEMATOCRIT 40.7 % (42.0-52.0); HEMOGLOBIN 13.2 g/dl (13.5-17.5); LYMPH # 1.5 10^3/uL (1.5-5.0); LYMPH % 21.2 % (24.0-44.0); MEAN CORPUSCULAR HEMOGLOBIN 28.9 pg (27.0-33.0); MEAN CORPUSCULAR HGB CONC 32.4 g/dl (32.0-36.5); MEAN CORPUSCULAR VOLUME 89.3 fl (80.0-96.0); MONO # 0.7 10^3/uL (0.0-0.8); NEUTROPHILS # 4.8 10^3/uL (1.5-8.5); NEUTROPHILS % 66.2 % (36.0-66.0); PLATELET COUNT, AUTOMATED 231 10^3/uL (150-450); RED BLOOD COUNT 4.56 10^6/uL (4.30-6.10); WHITE BLOOD COUNT 7.3 10^3/uL (4.0-10.0)
[2023-08-16 06:38] LABS: BLOOD UREA NITROGEN 12 MG/DL (9-23); CALCIUM LEVEL 8.3 MG/DL (8.5-10.1); CARBON DIOXIDE LEVEL 26 MMOL/L (20-31); CHLORIDE LEVEL 109 MMOL/L (98-107); GLOMERULAR FILTRATION RATE > 60.0 (>56); GLUCOSE, FASTING 144 MG/DL (60-100); POTASSIUM SERUM 4.4 MMOL/L (3.5-5.1); SODIUM LEVEL 142 MMOL/L (136-145)
[2023-08-16] MEDS: D5W/0.9% SODIUM CHLORIDE 1,000 ML IV SCH (06:48)
[2023-08-16] MEDS: INSULIN LISPRO (NovoLOG) PER UNIT SC SCH ×4 (07:30→20:33)
[2023-08-16 08:00] VITALS: BP 136/74; TEMP 99; O2SAT 98
[2023-08-16] MEDS: DOCUSATE SODIUM 100MG CAPSULE PO SCH ×2 (08:18→20:38)
[2023-08-16] MEDS: METOPROLOL SUCC (TopROL XL) 100MG *XL* TAB PO SCH (08:19)
[2023-08-16] MEDS: allopurinoL 300 MG TAB PO SCH (08:19)
[2023-08-16] MEDS: ENOXAPARIN 40MG/0.4ML SYRINGE (J1650 PER 10MG) SC SCH (08:19)
[2023-08-16] MEDS: VANCOMYCIN HCL 750 MG, VIAL MATE ADAPTER 1 EACH in D5W 250 ML IV SCH ×2 (11:00→22:17)
[2023-08-16 12:00] VITALS: BP 140/68; TEMP 98.4; O2SAT 99
[2023-08-16] MEDS: VANCOMYCIN HCL 500 MG in D5W MINI-BAG PLUS 100 ML IV SCH ×2 (12:09→23:22)
[2023-08-16 16:00] VITALS: BP 135/76; TEMP 98.5; O2SAT 97
[2023-08-16 20:04] VITALS: BP 134/74; TEMP 99.1; O2SAT 95
[2023-08-16] MEDS: SIMVASTATIN 20 MG TAB PO SCH (20:38)
[2023-08-16] MEDS: LEVEMIR (INSULIN DETEMIR) 1 UNITS/0.01ML SC SCH (20:39)
[2023-08-17] MEDS: PIPERACILLIN/TAZOBACTAM SOD 3.375 GM in D5W MINI-BAG PLUS 50 ML IV SCH ×3 (00:49→12:21)
[2023-08-17 04:28] VITALS: BP 136/81; TEMP 98.4; O2SAT 98
[2023-08-17 05:37] LABS: BASO % 0.6 % (0.0-1.0); EOS # 0.2 10^3/uL (0.0-0.5); EOS % 2.8 % (0.0-3.0); HEMATOCRIT 40.7 % (42.0-52.0); HEMOGLOBIN 13.2 g/dl (13.5-17.5); LYMPH # 1.6 10^3/uL (1.5-5.0); MEAN CORPUSCULAR HEMOGLOBIN 28.7 pg (27.0-33.0); MEAN CORPUSCULAR HGB CONC 32.4 g/dl (32.0-36.5); MEAN CORPUSCULAR VOLUME 88.5 fl (80.0-96.0); MONO # 0.5 10^3/uL (0.0-0.8); MONO % 8.2 % (2.0-8.0); NEUTROPHILS % 62.5 % (36.0-66.0); PLATELET COUNT, AUTOMATED 227 10^3/uL (150-450); WHITE BLOOD COUNT 6.4 10^3/uL (4.0-10.0)
[2023-08-17 06:02] LABS: BLOOD UREA NITROGEN 11 MG/DL (9-23); CARBON DIOXIDE LEVEL 27 MMOL/L (20-31); CHLORIDE LEVEL 110 MMOL/L (98-107); GLOMERULAR FILTRATION RATE > 60.0 (>56); GLUCOSE, FASTING 131 MG/DL (60-100); SODIUM LEVEL 143 MMOL/L (136-145)
[2023-08-17] MEDS: ENOXAPARIN 40MG/0.4ML SYRINGE (J1650 PER 10MG) SC SCH (08:10)
[2023-08-17] MEDS: allopurinoL 300 MG TAB PO SCH (08:10)
[2023-08-17] MEDS: INSULIN LISPRO (NovoLOG) PER UNIT SC SCH ×2 (08:11→12:21)
[2023-08-17 08:13] VITALS: BP 150/98
[2023-08-17] MEDS: DOCUSATE SODIUM 100MG CAPSULE PO SCH (08:13)
[2023-08-17] MEDS: METOPROLOL SUCC (TopROL XL) 100MG *XL* TAB PO SCH (08:13)
[2023-08-17] MEDS: VANCOMYCIN HCL 750 MG, VIAL MATE ADAPTER 1 EACH in D5W 250 ML IV SCH (10:20)
[2023-08-17] MEDS: VANCOMYCIN HCL 500 MG in D5W MINI-BAG PLUS 100 ML IV SCH (11:21)
[2023-08-17 14:00] VITALS: BP 119/67; TEMP 98.4; O2SAT 95
[2023-08-17] MEDS ORDERED: CEPH500C PO (16:02)
== END 2023-08-17 16:53 | disposition home or self-care (01) | DRG 951 ==
LOC: M ED 08:44 → M ED INP 11:01 → ENRESERV 11:33 → M MSPAV 12:41
PROVIDERS: ADMIT Internal Medicine Nephrology; ATTEND Internal Medicine Nephrology
PROC: 0Q9P0ZZ Drainage of Left Metatarsal, Open Approach (ICD-10-PCS; principal; 2023-08-15 16:30)
DX: E11.621 Type 2 diabetes mellitus with foot ulcer (principal); E11.42 Type 2 diabetes mellitus with diabetic polyneuropathy; I10 Essential (primary) hypertension; E78.5 Hyperlipidemia, unspecified; E66.9 Obesity, unspecified; G47.33 Obstructive sleep apnea (adult) (pediatric); L97.529 Non-pressure chronic ulcer of other part of left foot with unspecified severity; K76.0 Fatty (change of) liver, not elsewhere classified; M10.9 Gout, unspecified; Z90.49 Acquired absence of other specified parts of digestive tract; Z79.84 Long term (current) use of oral hypoglycemic drugs; Z79.899 Other long term (current) drug therapy; Z20.822 Contact with and (suspected) exposure to COVID-19

== ENCOUNTER → 2023-11-08 | Outpatient (REF) | payer OTHER ==
[~2023-11-08] MED LIST changes: +ALOG6.25 PO; +CEPH500C PO; +CLIN-250 PO; +FARX1TAB5 PO; +GLUCCAP23 PO; +HYDR12.55 PO; +INDO-16; +METO1TAB33 PO; +OMEG10002 PO; +VITA1CAP4 PO
== END ==
LOC: M LAB REF 11:56
PROVIDERS: ATTEND Podiatrist
DX: L03.126 Acute lymphangitis of left lower limb (principal)

== ENCOUNTER → 2025-01-03 | Outpatient (CLI) | payer BC ==
[~2025-01-03] MED LIST changes: +VITA100T91 PO
[2025-01-03 09:53] LABS: BASO # 0.1 10^3/uL (0.0-0.2); BASO % 0.7 % (0.0-1.0); EOS # 0.2 10^3/uL (0.0-0.5); EOS % 2.8 % (0.0-3.0); HEMATOCRIT 46.9 % (42.0-52.0); HEMOGLOBIN 15.5 g/dl (13.5-17.5); LYMPH # 2.1 10^3/uL (1.5-5.0); LYMPH % 29.3 % (24.0-44.0); MEAN CORPUSCULAR HEMOGLOBIN 29.2 pg (27.0-33.0); MEAN CORPUSCULAR VOLUME 88.3 fl (80.0-96.0); MONO # 0.5 10^3/uL (0.0-0.8); NEUTROPHILS # 4.3 10^3/uL (1.5-8.5); NEUTROPHILS % 59.5 % (36.0-66.0); PLATELET COUNT, AUTOMATED 156 10^3/uL (150-450); RED BLOOD COUNT 5.31 10^6/uL (4.30-6.10); WHITE BLOOD COUNT 7.2 10^3/uL (4.0-10.0)
[2025-01-03 10:02] LABS: ALBUMIN 4.2 G/DL (3.2-5.2); BILIRUBIN,TOTAL 1.1 MG/DL (0.3-1.2); CALCIUM LEVEL 9.3 MG/DL (8.5-10.1); CREATININE FOR GFR 1.1 MG/DL (0.70-1.30); GLOMERULAR FILTRATION RATE 79.3 (>56); POTASSIUM SERUM 3.9 MMOL/L (3.5-5.1); TOTAL PROTEIN 7.2 G/DL (5.7-8.2)
== END ==
LOC: M EKG 08:16
PROVIDERS: ATTEND Podiatrist
DX: Z01.818 Encounter for other preprocedural examination (principal); M20.42 Other hammer toe(s) (acquired), left foot; E11.621 Type 2 diabetes mellitus with foot ulcer; M79.672 Pain in left foot; L97.509 Non-pressure chronic ulcer of other part of unspecified foot with unspecified severity

== ENCOUNTER 2025-01-18 07:25 | Day surgery (SDC) | payer BC ==
[~2025-01-18] VITALS: Ht 185.4 cm; Wt 120.8 kg
[2025-01-18] MEDS ORDERED: DEXTROSE 50% 50ML SYRINGE IV PRN (07:45)
[2025-01-18] MEDS ORDERED: GLUCOSE 4 GM CHEW PO PRN (07:45)
[2025-01-18] MEDS ORDERED: INSULIN LISPRO (NovoLOG) PER UNIT SC PRN (07:45)
[2025-01-18] MEDS ORDERED: GLUCAGON INJ 1MG VIAL SC PRN (07:45)
[2025-01-18] MEDS ORDERED: MIDAZOLAM INJ 2MG/2ML VIAL As Ordered ONE (08:09)
[2025-01-18] MEDS ORDERED: propofoL 200 MG/20 ML VIAL As Ordered ONE (08:09)
[2025-01-18] MEDS ORDERED: fentaNYL 100 MCG/2 ML INJECTION As Ordered ONE (08:09)
[2025-01-18] MEDS ORDERED: ONDANSETRON 4MG 2ML VIAL As Ordered ONE (08:10)
[2025-01-18] MEDS ORDERED: KETOROLAC 30 MG/ML 1ML VIAL As Ordered ONE (08:10)
[2025-01-18] MEDS ORDERED: LIDOCAINE 2% 100MG/5ML SDV (FOR ANES.) As Ordered ONE (08:10)
[2025-01-18] MEDS ORDERED: ACETAMINOPHEN 1000MG/100ML IV BAG As Ordered ONE (08:15)
[2025-01-18] MEDS: ceFAZolin SOD 2 GM IV ONCE IV ONE (09:20)
[2025-01-18] MEDS: GENTAMICIN SULF 80MG/2ML VIAL As Ordered ONE (10:07)
[2025-01-18] MEDS: LIDOCAINE 2% MDV 20ML VIAL As Ordered ONE (10:07)
[2025-01-18 10:25] VITALS: BP 100/60; TEMP 98; O2SAT 95
== END 2025-01-18 12:05 | disposition home or self-care (01) ==
LOC: M SDC 07:25
PROVIDERS: ATTEND Podiatrist
DX: M77.42 Metatarsalgia, left foot (principal); E11.621 Type 2 diabetes mellitus with foot ulcer; I10 Essential (primary) hypertension; E78.00 Pure hypercholesterolemia, unspecified; Z79.899 Other long term (current) drug therapy; Z79.84 Long term (current) use of oral hypoglycemic drugs
CPT/HCPCS: 28308; 73630; 76000; 97116; 97161; J0131; J0665; J0690; J1580; J1885; J2250; J2405; J3010

== ENCOUNTER → 2025-02-01 | Outpatient (REF) | payer OTHER | LOC: M LAB REF 14:56 | PROVIDERS: ATTEND Podiatrist | DX: L03.119 Cellulitis of unspecified part of limb (principal) ==